=== PATIENT | female | born 1985 | race Caucasian/White ===

== ENCOUNTER 2020-02-22 16:07 | Outpatient (CLI) | payer OTHER, SELFPAY ==
[2020-02-22 16:36] LABS: Collection Time Urine 24 HOURS
[2020-02-22 16:49] LABS: Hematocrit 38.6 % (37.0-47.0); Hemoglobin 13.3 g/dL (12.0-15.0); Mean Corpuscular HGB Conc 34.5 g/dl (32-36); Mean Corpuscular Hemoglobin 31.6 pg (26-34); Mean Corpuscular Volume 91.7 fl (80-100); Mean Platelet Volume 11.3 fl (7.4-10.4); Platelet Count Result 244 k/mm3 (150-375); Red Blood Count 4.21 M/mm3 (4.2-5.4); Red Cell Distribution Width 13.3 % (11.5-14.5); White Blood Count 13.8 K/mm3 (4.5-10.0)
[2020-02-22 17:01] LABS: Alanine Aminotransferase 13 U/L (4-35); Albumin Level 3.5 g/dL (3.5-5.1); Alkaline Phosphatase 168 U/L (38-126); Anion Gap 9.6 mmol/L (7-16); Aspartate Amino Transferase 24 U/L (14-36); Bilirubin,Total 0.3 mg/dL (0.2-1.3); Blood Urea Nitrogen 6 mg/dL (7-17); Calcium 8.2 mg/dL (8.4-10.2); Carbon Dioxide 20 mmol/L (22-30); Chloride 107 mmol/L (98-107); Estimated Glomerular Filt Rate > 60; Glucose 101 mg/dL (65-105); Lactate Dehydrogenase 410 U/L (313-618); Potassium 3.6 mmol/L (3.4-5.0); Sodium 133 mmol/L (137-145)
[2020-02-22 17:14] LABS: Total Volume 24 Hour Urine 350 ml
[2020-02-22 17:50] LABS: Creatinine Urine 211.3 mg/dL
[2020-02-22 19:20] LABS: Creatinine Clearance Urine 88.7 ml/min (75-125); Patient Weight 325 Lbs
[2020-02-23 06:50] LABS: Total Protein Urine 24 Hr 28 MG/DAY (28-141); Total Protein Urine Random 8 mg/dL
== END 2020-02-22 16:08 | disposition home or self-care (01) ==
LOC: ANHLAB 16:09
PROVIDERS: PCP Obstetrics & Gynecology; Visit Provider Obstetrics & Gynecology
DX: O13.9 Gestational [pregnancy-induced] hypertension without significant proteinuria, unspecified trimester (principal); Z3A.00 Weeks of gestation of pregnancy not specified
CPT/HCPCS: 36415; 80053; 81002; 81050; 82575; 83615; 84156; 84550; 85027

== ENCOUNTER 2020-02-29 18:10 | Outpatient (CLI) | payer OTHER, SELFPAY ==
[2020-02-29] VITALS (12 sets, daily range): BP systolic 139–161; BP diastolic 81–98; PULSE 91–101
[2020-02-29 19:04] LABS: Basophils Percent Auto 0.3 % (0.2-1.2); Eosinophils Absolute Auto 0.1 K/mm3 (0-0.3); Eosinophils Percent Auto 0.5 % (0-4.4); Hematocrit 37.5 % (37.0-47.0); Hemoglobin 12.9 g/dL (12.0-15.0); Immature Granulocyte Percent A 0.7 % (0-0.5); Immature Platelet Fraction Pct 7.4 % (0.9-11.2); Lymphocytes Absolute Auto 2.03 K/mm3 (0.9-3.2); Lymphocytes Percent Auto 14.2 % (18.3-44.2); Mean Corpuscular HGB Conc 34.4 g/dl (32-36); Mean Corpuscular Hemoglobin 31.8 pg (26-34); Mean Corpuscular Volume 92.4 fl (80-100); Mean Platelet Volume 11.4 fl (7.4-10.4); Monocytes Absolute Auto 0.6 K/mm3 (0.1-0.6); Monocytes Percent Auto 4.3 % (2.6-8.5); Neutrophils Absolute Auto 11.5 K/mm3 (1.3-6.7); Platelet Count Result 200 k/mm3 (150-375); Red Blood Count 4.06 M/mm3 (4.2-5.4); Red Cell Distribution Width 13.3 % (11.5-14.5); White Blood Count 14.3 K/mm3 (4.5-10.0)
[2020-02-29 19:09] LABS: Add Urine Microscopic? YES; Appearance Urine Clear (Clear); Bacteria Urine Trace /hpf; Bilirubin Urine 1+ (Negative); Blood Urine Negative (Negative); Color Urine Yellow (Yellow); Glucose Urine UA Negative (Negative); Ketones Urine Negative (Negative); Leukocyte Esterase Ur Trace LEU/UL (NEGATIVE); Mucus Urine Few /lpf; Nitrate Urine Negative (Negative); Protein Urine 1+ mg/dL (Negative); Specific Grav Ur 1.028 (1.001-1.035); Squamous Epithelial Cell Urine Many /hpf (Few); WBC Urine 0-3 /hpf (0-3)
[2020-02-29 19:16] LABS: Alanine Aminotransferase 12 U/L (4-35); Albumin Level 3.2 g/dL (3.5-5.1); Alkaline Phosphatase 152 U/L (38-126); Anion Gap 9.5 mmol/L (7-16); Aspartate Amino Transferase 24 U/L (14-36); Bilirubin,Total < 0.1 mg/dL (0.2-1.3); Blood Urea Nitrogen 8 mg/dL (7-17); Calcium 8.3 mg/dL (8.4-10.2); Carbon Dioxide 21 mmol/L (22-30); Chloride 107 mmol/L (98-107); Estimated Glomerular Filt Rate > 60; Glucose 126 mg/dL (65-105); Potassium 3.5 mmol/L (3.4-5.0); Sodium 134 mmol/L (137-145); Uric Acid 3.8 mg/dL (2.5-7.5)
[2020-02-29] MEDS: LABETALOL HCL 100 MG TABLET PO (19:38)
== END 2020-02-29 21:30 | disposition home or self-care (01) ==
LOC: ANHOBOP 18:18 → ANHLDR 18:18
PROVIDERS: Obstetrics & Gynecology Gynecology; Visit Provider Obstetrics & Gynecology
DX: O13.9 Gestational [pregnancy-induced] hypertension without significant proteinuria, unspecified trimester (principal); Z3A.00 Weeks of gestation of pregnancy not specified
CPT/HCPCS: 36415; 59025; 80053; 81001; 84550; 85025; 85055; 87086; 87088; 99199; A9270

== ENCOUNTER 2020-03-04 04:50 | Inpatient (IN) | payer OTHER, SELFPAY ==
[2020-02-17 13:23] VITALS: BMI 49.6
[2020-03-04] VITALS (172 sets, daily range): BP systolic 95–172; BP diastolic 49–99; PULSE 74–124; TEMP 36.4–37; O2SAT 96–100
--- NOTE | 2020-03-04 06:32 | LDADM ---
This patient, Kathy Estrada, was admitted to Labor/Delivery/Recovery 109 on 03/04/20 at 04:50. Plans for labor, pain management and were discussed with patient. Patient/family oriented to hospital policies and general routines including ID bracelet, bed and alarms, visiting hours, pain management, procedures, bathroom and other care routines, personal items, smoking policy, room service/diet and guest tray routines, security routines, and visiting hours. Patient/Family are encouraged to report perceived risks to care and to ask questions if they do not understand what they are told or what they should do. See OBIX for further documentation.
--- NOTE | 2020-03-04 07:02 | WPDANESEPP ---
Anes - Eval Pre Procedure Procedure: Labor epidural Date/Time: 03/04/20 07:02 Surgeon: bigg michaud m.d. Preop Diagnosis: pain during labor Pre Op Diagnosis: IOL Patient Data Age: 34 Gender: F Height: 1.73 m Weight: 148 kg Last Vital Signs Pulse 106 H 03/04/20 05:26 BP 140/91 H 03/04/20 05:26 Allergies Allergy/AdvReac Type Severity Reaction Status Date / Time No Known Allergies Allergy Verified 07/31/19 17:20 Home Medications Medication Instructions Recorded Confirmed Type [id number] acid 1 tablet PO DAILY 07/31/19 03/04/20 History [ Multi] insulin NPH isoph U-100 human 18 unit SUBCUT HS 02/29/20 03/04/20 History [Humulin N NPH U-100 Insulin] insulin lispro 4 unit QACBREAK 02/29/20 03/04/20 History labetalol 200 mg PO BID 02/29/20 03/04/20 History Patient hx anesthesia problems: none Family hx anesthesia problems: none PMFSH Past Medical History Medical History (Updated 03/04/20 @ 07:03 by Oumou Cedeño CRNA) IUP (intrauterine ), incidental Morbid obesity with BMI of 45.0-49.9, adult Family History Family History (Updated 02/17/20 @ 13:29 by Kimberly Poole RN) Mother Hypertension Father Diabetes mellitus Liver abscess and sequelae of chronic liver disease Social History Social History (Updated 07/31/19 @ 18:03 by Shabana Milian CNP) Years smoked: 17 Smoking status: Current every day smoker Substance use: never Gender identity (if verbalized by the patient): Female Sexual Orientation (if Verbalized by the Patient): Straight or Heterosexual Spiritual care concerns: No Exam Day of Procedure 03/04/20 07:02
[2020-03-04] MEDS: LACTATED RINGERS 1,000 ML 125 ML IV CONT ×2 (08:09→14:23)
[2020-03-04] MEDS: OXYTOCIN 30 UNITS/NS 500 ML 30 UNITS/500 ML BAG IV CONT (08:10)
[2020-03-04 08:19] LABS: Basophils Percent Auto 0.3 % (0.2-1.2); Eosinophils Absolute Auto 0.1 K/mm3 (0-0.3); Eosinophils Percent Auto 0.7 % (0-4.4); Hematocrit 34.6 % (37.0-47.0); Hemoglobin 11.9 g/dL (12.0-15.0); Immature Granulocyte Absolute 0.18 K/mm3 (0.00-0.031); Immature Granulocyte Percent A 1.2 % (0-0.5); Lymphocytes Absolute Auto 2.25 K/mm3 (0.9-3.2); Lymphocytes Percent Auto 14.9 % (18.3-44.2); Mean Corpuscular HGB Conc 34.4 g/dl (32-36); Mean Corpuscular Hemoglobin 31.9 pg (26-34); Mean Corpuscular Volume 92.8 fl (80-100); Mean Platelet Volume 11.1 fl (7.4-10.4); Monocytes Absolute Auto 1.1 K/mm3 (0.1-0.6); Monocytes Percent Auto 7.4 % (2.6-8.5); Neutrophils Absolute Auto 11.4 K/mm3 (1.3-6.7); Neutrophils Percent Auto 75.5 % (45.5-73.1); Platelet Count Result 229 k/mm3 (150-375); Red Blood Count 3.73 M/mm3 (4.2-5.4); Red Cell Distribution Width 13.4 % (11.5-14.5); White Blood Count 15.1 K/mm3 (4.5-10.0)
[2020-03-04 08:31] LABS: Alanine Aminotransferase 14 U/L (4-35); Albumin Level 3.2 g/dL (3.5-5.1); Alkaline Phosphatase 152 U/L (38-126); Anion Gap 8.7 mmol/L (7-16); Aspartate Amino Transferase 28 U/L (14-36); Bilirubin,Total 0.3 mg/dL (0.2-1.3); Blood Urea Nitrogen 11 mg/dL (7-17); Calcium 8.5 mg/dL (8.4-10.2); Carbon Dioxide 20 mmol/L (22-30); Chloride 107 mmol/L (98-107); Estimated CRCL calculation 171 ml/min; Estimated Glomerular Filt Rate > 60; Glucose 90 mg/dL (65-105); Potassium 3.7 mmol/L (3.4-5.0); Sodium 132 mmol/L (137-145)
[2020-03-04 09:12] LABS: HIV 1/2 Ab P24 Ag Result Negative (Negative)
--- NOTE | 2020-03-04 11:44 | WPDOBADMIT ---
Obstetrics - Admit Note Admission Note: record reviewed. No pertinent additions to the history and/or any subsequent changes in the physical findings that are not consistent with the expected course of the were found. Additions to the history and/or subsequent changes in the physical findings follow. GDMA2 and PIH. MIL in progress. Cervix 1-2/50/-3 AROM with clear fluid. FHTs reactive. Dr. Galdamez informed..
[2020-03-04 11:52] LABS: Glucose Point of Care 80 (65-105)
[2020-03-04 15:46] LABS: Glucose Point of Care 66 (65-105)
[2020-03-04 19:54] LABS: Glucose Point of Care 65 (65-105)
[2020-03-04] MEDS: OXYTOCIN 30 UNITS/NS 500 ML 30 UNITS/500 ML BAG 125 UNITS IV CONT (21:59)
--- NOTE | 2020-03-04 22:00 | PM.OBPRVD ---
OB - Delivery Note Procedure Delivery date: 03/04/20 Procedure: events: Labor Induction Induction method: AROM and per pitocin protocol Delivery monitor: external FHT, external uterine, internal FHT and internal uterine Route of delivery: Laceration description: None Specimen: Yes Estimated blood loss (mL): 120 Anesthesia type: Epidural Disposition: observation Baby Date of : 03/04/20 Time of : 21:27 Weeks of gestation at delivery: 39 Infant gender: Male Weight (pounds): 7 Weight (ounces): 6 presentation: vertex Placenta delivery description: Spontaneous cord vessel description: 3 Vessels score one minute: 9 score five minutes: 9
[2020-03-05 00:05] VITALS: BP 159/89; PULSE 101; RESP 16; TEMP 36.6; O2SAT 99
--- NOTE | 2020-03-05 00:05 | OBPPTRN ---
Patient transferred to post room #288 via wheelchair. Support person present. Oriented to unit, room, information board, rooming in, admission packet and security measures. Patient verbalizes understanding. with patient.
[2020-03-05] MEDS: IBUPROFEN 600 MG TABLET PO ×3 (00:25→17:07)
[2020-03-05 06:04] LABS: Hematocrit 34.8 % (37.0-47.0); Hemoglobin 11.7 g/dL (12.0-15.0)
--- NOTE | 2020-03-05 07:44 | WPDANLDPN2 ---
Anes-Prog Note L&D Date/Time: 03/05/20 07:44 Comfortable throughout: labor Neuraxial method: epidural Neuro status: Neuro function grossly intact. Cardiovascular status: normal Respiratory status: normal Airway patency: baseline Mental status: baseline Post-Op hydration status: normal Vital Signs: Last Vital Signs Temp 36.6 C 03/05/20 00:05 Pulse 101 H 03/05/20 00:05 Resp 16 03/05/20 00:05 BP 159/89 H 03/05/20 00:05 Pulse Ox 99 03/05/20 00:05 I/O: Intake & Output 03/04/20 03/04/20 03/05/20 15:59 23:59 07:59 Intake Total 1000 500 Output Total 40 Balance 1000 500 -40 Post-procedural complaints: none Patient feedback: Patient satisfied with anesthetic care.
[2020-03-05 08:00] VITALS: BP 156/97; PULSE 93; RESP 16; RESP 18; TEMP 36.6
[2020-03-05] MEDS: DOCUSATE SODIUM 100 MG CAPSULE PO ×2 (08:29→17:06)
[2020-03-05 08:30] VITALS: PULSE 100
[2020-03-05] MEDS: LABETALOL HCL 100 MG TABLET 200 MG PO ×2 (08:30→17:06)
[2020-03-05 11:04] LABS: Rapid Plasma Reagin Non-Reactive (NonReactive)
[2020-03-05 17:06] VITALS: PULSE 100
[2020-03-05 20:00] VITALS: BP 149/86; PULSE 93; RESP 18; TEMP 36.2; O2SAT 99
[2020-03-06 07:50] VITALS: BP 157/105; PULSE 88; RESP 18; TEMP 36.6; O2SAT 100
[2020-03-06 08:45] VITALS: PULSE 80
[2020-03-06] MEDS: LABETALOL HCL 100 MG TABLET 200 MG PO (08:45)
[2020-03-06] MEDS: IBUPROFEN 600 MG TABLET PO (08:46)
--- NOTE | 2020-03-06 09:29 | PM.GYNPNOP ---
ASP NET DEVELOPER - A/P Assessment and plan (1) (normal spontaneous vaginal delivery): Code(s): O80 - Encounter for full-term uncomplicated delivery Status: Acute (2) PIH ( induced hypertension): Code(s): O13.9 - Gestational [-induced] hypertension without significant proteinuria, unspecified trimester Status: Acute Assessment and Plan: recheck PIH labs continue labetalol consider increase TID. Time Spent With Patient Time: Total time spent is greater than 50% in coordination of care (as documented) at patient's floor/unit and/or counseling patient: Time with patient: less than 15 minutes ASP NET DEVELOPER- PN:Subj Post-Op Subjective Date/time seen: 03/06/20 09:29 S: doing well no complaints desires home today Exam : Other: uterus palpable fundus firm ASP NET DEVELOPER - PN: Obj Data Vital Signs Vital Signs: Vital Signs - 24 hr 03/05/20 17:06 03/05/20 20:00 03/06/20 08:45 Temperature 36.2 C L Pulse Rate 100 93 80 Respiratory Rate 18 Blood Pressure 149/86 H Pulse Oximetry 99 Intake/Output Intake/Output: Intake & Output 03/03/20 03/04/20 03/05/20 03/06/20 23:59 23:59 23:59 23:59 Intake Total 1500 Output Total 40 Balance 1500 -40 Meds/Results Medications: Active Medications Generic Name Dose Route Start Last Admin Trade Name Freq PRN Reason Stop Dose Admin Acetaminophen 650 mg 03/04/20 22:04 Tylenol Tablet PO Q6H PRN Mild Pain (1-3) or Headache Benzocaine 1 spray 03/04/20 22:04 Dermoplast Aerosol TOPICAL PRN PRN Perineal Discomfort Dibucaine 1 applic 03/04/20 22:04 Nupercainal Ointment TOPICAL PRN PRN Hemorrhoids Docusate Sodium 100 mg 03/04/20 22:04 03/05/20 17:06 Colace Capsule PO 100 mg BID PRN Administration Constipation Emollient Ointment 1 applic 03/04/20 22:04 Lansinoh Cream TOPICAL PRN PRN Sore Nipples Ibuprofen 600 mg 03/04/20 22:04 03/06/20 08:46 Motrin PO 600 mg Q6H PRN Administration Cramping Labetalol HCl 200 mg 03/05/20 09:00 03/06/20 08:45 Trandate PO 200 mg BID CHANEL Administration Ondansetron HCl 4 mg 03/04/20 22:04 Zofran Inj IV PUSH Q6H PRN Nausea Polysaccharide Iron Complex 150 mg 03/05/20 08:00 03/05/20 08:33 Niferex-150 PO Not Given BIDWM CHANEL Vit/Calcium/Iron/Folic Ac 1 tab 03/05/20 09:00 Mr 90 PO DAILY [facility] Simethicone 80 mg 03/04/20 22:04 Mylicon PO Q2H PRN Gas Witch Stacia 1 pad 03/04/20 22:04 Tucks Pads TOPICAL PRN PRN Perineal Discomfort Zolpidem Tartrate 5 mg 03/04/20 22:04 Ambien PO HS PRN Insomnia Labs CBC & Chem 7: 03/05/20 05:25 03/04/20 07:35 Labs: Laboratory Results - last 24 hr 03/04/20 07:35 RPR Non-reactive
--- NOTE | 2020-03-06 09:39 | PM.OBPNVD ---
OB - PN: Subj Subjective Date/time seen: 03/05/20 0735 S: doing well no complaints OB - PN: Obj Data Labs CBC & Chem 7: 03/05/20 05:25 03/04/20 07:35 Labs: Laboratory Results - last 24 hr 03/04/20 07:35 RPR Non-reactive OB - PN A/P Assessment and Plan (1) PIH ( induced hypertension): Code(s): O13.9 - Gestational [-induced] hypertension without significant proteinuria, unspecified trimester Status: Acute Assessment and Plan: stable bps with labetalol 200 mg po bid. (2) (normal spontaneous vaginal delivery): Code(s): O80 - Encounter for full-term uncomplicated delivery Status: Acute Time Spent With Patient Time: Total time spent is greater than 50% in coordination of care (as documented) at patient's floor/unit and/or counseling patient: Exam GI: Other: abdomen soft ff
[2020-03-06 10:37] LABS: Basophils Percent Auto 0.3 % (0.2-1.2); Eosinophils Absolute Auto 0.1 K/mm3 (0-0.3); Eosinophils Percent Auto 0.9 % (0-4.4); Hematocrit 31.9 % (37.0-47.0); Hemoglobin 10.7 g/dL (12.0-15.0); Immature Granulocyte Absolute 0.17 K/mm3 (0.00-0.031); Immature Granulocyte Percent A 1.4 % (0-0.5); Lymphocytes Absolute Auto 2.06 K/mm3 (0.9-3.2); Lymphocytes Percent Auto 16.7 % (18.3-44.2); Mean Corpuscular HGB Conc 33.5 g/dl (32-36); Mean Corpuscular Hemoglobin 31.9 pg (26-34); Mean Corpuscular Volume 95.2 fl (80-100); Monocytes Absolute Auto 0.8 K/mm3 (0.1-0.6); Monocytes Percent Auto 6.1 % (2.6-8.5); Neutrophils Absolute Auto 9.2 K/mm3 (1.3-6.7); Neutrophils Percent Auto 74.6 % (45.5-73.1); Platelet Count Result 185 k/mm3 (150-375); Red Blood Count 3.35 M/mm3 (4.2-5.4); Red Cell Distribution Width 13.9 % (11.5-14.5); White Blood Count 12.3 K/mm3 (4.5-10.0)
[2020-03-06 10:53] LABS: Alanine Aminotransferase 17 U/L (4-35); Albumin Level 3.1 g/dL (3.5-5.1); Alkaline Phosphatase 120 U/L (38-126); Anion Gap 7.2 mmol/L (7-16); Aspartate Amino Transferase 32 U/L (14-36); Bilirubin,Total < 0.1 mg/dL (0.2-1.3); Blood Urea Nitrogen 12 mg/dL (7-17); Calcium 8.3 mg/dL (8.4-10.2); Carbon Dioxide 23 mmol/L (22-30); Chloride 108 mmol/L (98-107); Estimated CRCL calculation 202 ml/min; Estimated Glomerular Filt Rate > 60; Glucose 96 mg/dL (65-105); Potassium 4.2 mmol/L (3.4-5.0); Sodium 134 mmol/L (137-145); Uric Acid 3.7 mg/dL (2.5-7.5)
--- NOTE | 2020-03-07 14:08 | PM.DS ---
DS: Admitting Diagnosis Admitting Diagnosis Admitting Diagnosis: Encounter for full-term uncomplicated delivery DS: Discharge Diagnosis Discharge Diagnosis (1) PIH ( induced hypertension): Code(s): O13.9 - Gestational [-induced] hypertension without significant proteinuria, unspecified trimester Status: Acute (2) (normal spontaneous vaginal delivery): Code(s): O80 - Encounter for full-term uncomplicated delivery Status: Acute (3) Morbid obesity with BMI of 45.0-49.9, adult: Code(s): E66.01 - Morbid (severe) obesity due to excess calories; Z68.42 - Body mass index (BMI) 45.0-49.9, adult Status: Acute (4) GDM, class A2: Code(s): O24.419 - Gestational diabetes mellitus in , unspecified control Status: Acute DS: Summary Time Spent with Patient Time attestation: Total time spent providing and/or coordinating discharge services: DS: Data Data Completed and Pending Pending studies at discharge: Pending at discharge 03/04/20 21:45 Surgical [PTH] Routine Discharge Plan Discharge Attending physician on discharge: Nathanael Galdamez Discharging Clinician: Nathanael Galdamez Patient Disposition: Home, Self-Care Activity: may shower Diet: regular Discharge Instructions: Education: Mom and Baby Guide Given to: Mother Follow-Up: Call your delivering provider's office for an appointment to be seen. Mom and baby should come to the [facility] for the follow-up appointment. Appointment Date/Time: March 08, 2020 at 11:00 am What to expect at your follow-up visit: Physical Assessment Call [phone] if you are unable to keep your appointment time. BREAST CARE: * Wear a snug supportive bra. * For engorgement discomfort: Bottle Feeding: * May apply ice packs EPISIOTOMY/PERINEAL CARE: * Until bleeding stops, use your wendie bottle after urinating * Change your pad frequently throughout the day * You may take sitz baths several times a day (fill your bathtub with warm water and soak for 20 minutes.) Do NOT bathe in the water * No tub baths until seen by your physician - You may shower ACTIVITY: * Rest as much as possible. * Do not exercise or lift anything heavier than your baby (such as laundry or other children.) * Avoid stairs or driving as much as possible. * Do not put anything into the vagina. No douching, tampons, or sexual activity until seen by physician. NOTIFY PHYSICIAN IF YOU HAVE ANY QUESTIONS OR IF ANY OF THE FOLLOWING SYMPTOMS OCCUR: * If your perineum becomes red, swollen, or more painful than what you have experienced in the hospital. * If your vaginal bleeding becomes foul smelling. * If your vaginal bleeding becomes more heavy than a period or if your bleeding changes from pink to bright red. However, you may pass an occasional walnut-sized clot once or twice for the first week . * If you experience a sharp, shooting pain in you calves. * If you discover a hard, reddened area on your breast or if you experience flu-like symptoms. DIET: * Eat regular, well-balanced meals. * Drink plenty of fluids daily. Stand Alone Forms: General Discharge Information Follow-up/Referrals: Nathanael Galdamez MD [Physician] - Discharge Medications: Continued Multi 27-800 mg-mcg Tablet 1 tablet PO DAILY RF: 0 labetalol 100 mg tablet 200 mg PO BID RF: 0 Discontinued insulin lispro 100 unit/mL solution 4 unit QACBREAK RF: 0 Humulin N NPH U-100 Insulin 100 unit/mL suspension 18 unit SUBCUT HS RF: 0 Date of admission: 03/04/20 04:50 Primary Care Provider: PHYSICIAN,SPINE SURGEON Admitting Provider: Nathanael Galdamez Discharge Date/Time: 03/06/20 14:40 Attending physician on admission: Nathanael Galdamez
[2020-03-08 11:36] VITALS: BP 157/90; PULSE 82; RESP 22; O2SAT 100
== END 2020-03-06 14:40 | disposition home or self-care (01) | DRG 560 ==
LOC: ANHLDR 23:30 → ANHOB2 03-05 00:35
PROVIDERS: Admitting Provider Obstetrics & Gynecology; Visit Provider Obstetrics & Gynecology
DX: O24.429 Gestational diabetes mellitus in childbirth, unspecified control (principal); Z37.0 Single live birth; Z3A.39 39 weeks gestation of pregnancy; O13.4 Gestational [pregnancy-induced] hypertension without significant proteinuria, complicating childbirth; O36.8330 Maternal care for abnormalities of the fetal heart rate or rhythm, third trimester, not applicable or unspecified; O99.214 Obesity complicating childbirth; E66.01 Morbid (severe) obesity due to excess calories
CPT/HCPCS: 36415; 80053; 84550; 85014; 85018; 85025; 86592; 86703; 86850; 86900; 86901; 88307; A9270; G0432; J2590; J2795; J3010; J7120

== ENCOUNTER 2021-02-11 18:06 | Emergency (ER) | payer OTHER, SELFPAY ==
--- NOTE | 2021-02-11 18:57 | PC.NURSE ---
Patient called to triage. No answer at this time.
== END 2021-02-12 04:29 | disposition left against medical advice (07) ==
DX: Z53.21 Procedure and treatment not carried out due to patient leaving prior to being seen by health care provider (principal)
CPT/HCPCS: 99199

== ENCOUNTER 2021-02-11 18:41 | Emergency (ER) | payer OTHER, SELFPAY ==
[2021-02-11 18:52] VITALS: BP 151/101; PULSE 108; RESP 20; TEMP 37.3; O2SAT 100
--- NOTE | 2021-02-11 18:59 | ED.DENTAL ---
HPI - Dental/Oral General Chief complaint: Dental/Oral Stated complaint: facial swelling Time Seen by Provider: 02/11/21 18:50 Source: patient and RN notes reviewed Mode of arrival: ambulatory Limitations: no limitations History of Present Illness HPI Narrative: 35-year-old female presents to the [facility] with complaints of left-sided facial swelling. Very poor dentition noted. Has a history of dental decay and infections. Related Data Home Medications Medication Instructions Recorded Confirmed medroxyprogesterone See Rx Instructions .ROUTE .COMPLEX 02/11/21 02/11/21 Allergies Allergy/AdvReac Type Severity Reaction Status Date / Time No Known Allergies Allergy Verified 02/11/21 18:45 Review of Systems Review of Systems: All systems reviewed & are unremarkable except as noted in HPI and below Constitutional: Constitutional: Reports no additional constitutional complaints, Denies chills and Denies fever(s) Eyes: Eyes: Reports no additional eye complaints ENT: Comments: Left posterior jaw swelling Cardiovascular: Cardiovascular: Reports no additional cardiovascular complaints Respiratory: Respiratory: Reports no additional respiratory complaints Gastrointestinal: Gastrointestinal: Reports no additional gastrointestinal complaints Musculoskeletal: Musculoskeletal: Reports no additional musculoskeletal complaints Integumentary/Breasts: Skin/Breast: Reports system reviewed and no additional complaints, except as docu Neurologic: Reports system reviewed and no additional complaints, except as documented Psychiatric: Psychiatric: Reports no additional psychiatric complaints Allergic/Immunologic: Allergic/Immunologic: Reports no additional allergic/immunologic complaints [facility] Past Medical History Medical History (Updated 02/11/21 @ 19:01 by Katya Peres) GDM, class A2 IUP (intrauterine ), incidental Morbid obesity with BMI of 45.0-49.9, adult (normal spontaneous vaginal delivery) PIH ( induced hypertension) Family History Family History Mother Hypertension Father Diabetes mellitus Liver abscess and sequelae of chronic liver disease Social History Social History Years smoked: 17 Smoking status: Current every day smoker Substance use: never Gender identity (if verbalized by the patient): Female Spiritual care concerns: No Comments At the time of my signature, I reviewed and agree with the nursing past medical, surgical, social, and family history. There is no relevant family history pertinent to the patient complaint. Exam Const: General: healthy appearing, no acute distress and alert Nutritional Appearance: well nourished and obese Orientation/consciousness: patient oriented x3 Limitations: no limitations HENMT: Head: normal to inspection Ears: hearing grossly normal bilaterally, external ears normal, TM's normal bilaterally and EAC's normal General nose exam: Normal external nose present Face and sinus: sinuses nontender Mouth: Yes oropharynx normal and Yes moist mucous membranes Teeth and gingiva: abnormal tooth and associated gingiva (Left lower posterior wisdom tooth, decayed into the gum. ), caries, gingiva abnormal diffusely erythematous and poor dentition Teeth image: 1. Decayed noted with swelling of the surrounding tissue Eyes: Pupils: Equal, round and reactive pupils present Neck: Neck: lymphadenopathy left submandibular soft and tender Neck images: 1. Swelling and tenderness noted on palpation, no redness. No fluctuant area. Chest: Chest palpation & inspection: normal inspection of the chest Resp: Effort & Inspection: normal respiratory effort and no use of accessory muscles Auscultation: clear to auscultation bilaterally, no crackles, no rales, no rhonchi and no wheezes Cardio: Rate: regular rate Rhythm: regular rhythm
== END 2021-02-11 19:07 | disposition home or self-care (01) ==
PROVIDERS: Emergency Provider Nurse Practitioner
DX: K04.7 Periapical abscess without sinus (principal); F17.200 Nicotine dependence, unspecified, uncomplicated; E66.01 Morbid (severe) obesity due to excess calories; Z68.42 Body mass index [BMI] 45.0-49.9, adult
CPT/HCPCS: 99213; G0463

== ENCOUNTER 2023-01-07 21:09 | Emergency (ER) | payer OTHER, SELFPAY ==
[2023-01-07] VITALS (13 sets, daily range): BP systolic 147–178; BP diastolic 105–131; PULSE 88–122; RESP 14–23; TEMP 36.9; O2SAT 98–100
--- NOTE | ~2023-01-07 | XR_ITS ---
EXAMINATION: XR chest 2V DATE: 01/07/2023 21:58 INDICATION: Centralized chest pain, tobacco use TECHNIQUE: PA and lateral views of the chest are obtained. COMPARISON: 07/26/2018 FINDINGS: The lungs are free of acute opacities. No pleural effusion or pneumothorax. The cardiomedia stinal silhouette is normal. There is mild thoracic spondylosis. IMPRESSION: 1. No acute cardiopulmonary abnormality. Reviewed, dictated and finalized at location F.
--- NOTE | ~2023-01-07 | CT_ITS ---
Clinical Indication: Chest pain, dyspnea CT Scan of the Chest with Contrast: Technique: Contiguous sections were acquired throughout the chest after intravenous administration of 100 cc of Omnipaque 350. Dose reduction technique was used on this scan by utilizing automated expos ure control and iterative reconstruction technique. The dose-length product (DLP) was 930.05 mGy-cm. Findings: There is no evidence of any significant mediastinal, hilar or axillary lymphadenopathy. There is no f illing defect in the pulmonary arterial tree to suggest pulmonary embolus. There is no evidence of ao rtic dissection or aneurysm. There is no evidence of pleural or pericardial effusion. The lungs are clear. No pulmonary nodules or infiltrates are noted. Images through the upper abdomen reveal no abnormalities. Impression: No evidence of pulmonary embolus, aortic dissection, or aortic aneurysm. Clear lungs. Reviewed, dictated and finalized at [facility]. Impression: No evidence of pulmonary embolus, aortic dissection, or aortic aneurysm. Clear lungs.
--- NOTE | 2023-01-07 21:14 | ECG_ITS ---
Measurements Intervals [place] Rate: 113 P: 47 WV: 169 QRS: 52 QRSD: 95 T: 15 QT: 313 QTc: 429 Interpretive Statements SINUS TACHYCARDIA RATE DEPENDENT RIGHT BUNDLE BRANCH BLOCK ABNORMAL RHYTHM ECG NO PREVIOUS ECG AVAILABLE FOR COMPARISON Electronically Signed On 01-08-2023 12:40:32 CDT by Perry Aviles M.D.
[2023-01-07] MEDS: ASPIRIN 81 MG CHEWABLE TABLET 324 MG PO (21:30)
[2023-01-07 21:31] LABS: Basophils Absolute Auto 0.1 K/mm3 (0.0-0.1); Basophils Percent Auto 0.5 % (0.2-1.2); Eosinophils Absolute Auto 0.1 K/mm3 (0-0.3); Eosinophils Percent Auto 0.9 % (0-4.4); Hematocrit 44.1 % (37.0-47.0); Hemoglobin 14.7 g/dL (12.0-15.0); Immature Granulocyte Absolute 0.03 K/mm3 (0.00-0.031); Immature Granulocyte Percent A 0.3 % (0-0.5); Lymphocytes Absolute Auto 3.26 K/mm3 (0.9-3.2); Lymphocytes Percent Auto 27.9 % (18.3-44.2); Mean Corpuscular HGB Conc 33.3 g/dl (32-36); Mean Corpuscular Hemoglobin 30.1 pg (26-34); Mean Corpuscular Volume 90.4 fl (80-100); Mean Platelet Volume 10.1 fl (7.4-10.4); Monocytes Absolute Auto 0.6 K/mm3 (0.1-0.6); Monocytes Percent Auto 5.2 % (2.6-8.5); Neutrophils Absolute Auto 7.6 K/mm3 (1.3-6.7); Neutrophils Percent Auto 65.2 % (45.5-73.1); Platelet Count Result 272 k/mm3 (150-375); Red Blood Count 4.88 M/mm3 (4.2-5.4); Red Cell Distribution Width 13.1 % (11.5-14.5); White Blood Count 11.7 K/mm3 (4.5-10.0)
[2023-01-07 21:42] LABS: Prothrombin Time 13.7 Seconds (11.1-14.7)
[2023-01-07 21:43] LABS: Alanine Aminotransferase 23 U/L (6-35); Albumin Level 4.2 g/dL (3.5-5.1); Alkaline Phosphatase 77 U/L (38-126); Anion Gap 8 mmol/L (8-16); Aspartate Amino Transferase 31 U/L (14-36); Bilirubin,Total 0.4 mg/dL (0.2-1.3); Blood Urea Nitrogen 7 mg/dL (7-17); Calcium 8.3 mg/dL (8.4-10.2); Carbon Dioxide 23 mmol/L (22-30); Chloride 106 mmol/L (98-107); Estimated CRCL calculation 139 ml/min; Estimated Glomerular Filt Rate > 60; Glucose 120 mg/dL (65-110); Lipase 127 U/L (23-300); Partial Thromboplastin Time 24.9 SECONDS (22.3-36.8); Potassium 3.3 mmol/L (3.4-5.0); Sodium 137 mmol/L (137-145)
[2023-01-07 21:54] LABS: Troponin I < 0.012 ng/mL (0.000-0.034)
--- NOTE | 2023-01-07 22:23 | ED.CHESTPAIN ---
HPI - Chest Pain General Chief Complaint: Chest Pain <SHEBA Sanchez Last Filed: 01/08/23 03:04> Stated Complaint: chest pain <SHEBA Sanchez Last Filed: 01/08/23 03:04> Time Seen by Provider: 01/07/23 21:45 <SHEBA Sanchez Last Filed: 01/08/23 03:04> Source: patient <SHEBA Sanchez Last Filed: 01/08/23 03:04> Mode of arrival: ambulatory <SHEBA Sanchez Last Filed: 01/08/23 03:04> Limitations: no limitations <SHEBA Sanchez Last Filed: 01/08/23 03:04> History of Present Illness HPI narrative: This is a 37-year-old female presents to the ED with chief complaints of chest pain shortness of breath ongoing for the past week and a half intermittently. Patient states that tonight it was a little worse so she came to the ER for further evaluation. Patient reports initially she had pain in the center of the chest that radiated to the left side. Reports ciaran mitten diaphoresis when the pain came on tonight is since resolved. Denies vomiting. Denies any right-sided pain. Reports it is hard to take a deep breath. Also reports associated tingling to the bilateral upper extremities. <SHEBA Sanchez Last Filed: 01/08/23 03:04> Related Data Home Medications: Home Medications Medication Instructions Recorded Confirmed medroxyprogesterone 150 mg/mL See Rx Instructions .Route .COMPLEX 02/11/21 02/11/21 intramuscular suspension <SHEBA Sanchez Last Filed: 01/08/23 03:04> Allergies/Adverse Reactions: Allergies Allergy/AdvReac Type Severity Reaction Status Date / Time No Known Allergies Allergy Verified 02/11/21 18:45 <SHEBA Sanchez Last Filed: 01/08/23 03:04> Review of Systems Review of Systems: CONSTITUTIONAL: Denies fever, chills, or sweats. EYES: Denies visual changes, redness, or discharge. ENT: Denies rhinorrhea, congestion, sore throat, or otalgia. CARDIOVASCULAR: See HPI RESPIRATORY: See HPI GASTROINTESTINAL: Denies abdominal pain, nausea, vomiting, or diarrhea. GENITOURINARY: Denies dysuria or hematuria. SKIN: Denies rash or itching. MUSCULOSKELETAL: Denies back pain, joint pain, or myalgia. NEUROLOGIC: Denies headache, numbness, dizziness, or weakness. PSYCHIATRIC: See HPI <Juve Jarvis PA-C - Last Filed: 01/08/23 03:04> PMFSH Past Medical History Medical History: Medical History (Updated 01/09/23 @ 00:00 by Rosalia Pierre) GDM, class A2 IUP (intrauterine ), incidental Morbid obesity with BMI of 45.0-49.9, adult (normal spontaneous vaginal delivery) PIH ( induced hypertension) <SHEBA Sanchez Last Filed: 01/08/23 03:04> Family History Family History: Family History Mother Hypertension Father Diabetes mellitus Liver abscess and sequelae of chronic liver disease <SHEBA Sanchez Last Filed: 01/08/23 03:04> Social History Social History: Social History Years smoked: 17 Smoking status: Current every day smoker Substance use: never Gender identity (if verbalized by the patient): Female Sexual Orientation (if Verbalized by the Patient): Straight or Heterosexual Spiritual care concerns: No <SHEBA Sanchez Last Filed: 01/08/23 03:04> Exam Narrative: GENERAL: Well-appearing, well-nourished, and in no acute distress. HEAD: Normocephalic, atraumatic. EYES: PERRLA and EOMI. ENT: Nares clear, no rhinorrhea or epistaxis. Mucous membranes moist. Oropharynx without tonsillar hypertrophy exudate or other lesions. NECK: Supple. No adenopathy or masses. CHEST: No respiratory distress. Clear to auscultation. No wheezes rales or rhonchi HEART: Tachycardic to 116 on my exam. Regular rhythm. No murmur heard. Normal peripheral pulses. ABDOMEN: Soft, nontender, nondistended, normal active bowel sounds. MSK: No
[2023-01-07 22:58] LABS: NT Pro B Type Natriuretic Pept 205 pg/mL (19.9-100)
[2023-01-07] MEDS: LORazepam INJ (*CRX) 2 MG/ML VIAL 0.5 MG IV PUSH (23:00)
[2023-01-07] MEDS: SODIUM CHLORIDE 0.9% IV 1,000 ML 999 ML IV CONT (23:00)
[2023-01-08] VITALS: PULSE 91; RESP 17; O2SAT 97
[2023-01-08 00:15] VITALS: PULSE 93; RESP 12; O2SAT 99
[2023-01-08 00:30] VITALS: PULSE 79; RESP 14; O2SAT 93
[2023-01-08 01:30] LABS: Troponin I < 0.012 ng/mL (0.000-0.034)
[2023-01-08 01:55] VITALS: BP 160/100
== END 2023-01-08 01:56 | disposition home or self-care (01) ==
PROVIDERS: Emergency Medicine; Emergency Provider Physician Assistant
DX: F41.9 Anxiety disorder, unspecified (principal); E66.01 Morbid (severe) obesity due to excess calories; Z68.42 Body mass index [BMI] 45.0-49.9, adult; F17.200 Nicotine dependence, unspecified, uncomplicated; R00.0 Tachycardia, unspecified; I45.10 Unspecified right bundle-branch block
CPT/HCPCS: 36415; 71046; 71275; 80053; 83690; 83880; 84484; 85025; 85610; 85730; 93005; 96361; 96374; 99284; A9270; J2060; J7030; Q9967

== ENCOUNTER 2023-02-04 08:01 | Outpatient (CLI) | payer OTHER, SELFPAY ==
--- NOTE | ~2023-02-04 | XR_ITS ---
EXAMINATION: XR sacrum coccyx min 2V DATE: 02/04/2023 08:30 INDICATION: Tailbone pain when rising from seated position TECHNIQUE: 3 views of the sacrum and coccyx were obtained. COMPARISON: None. FINDINGS: Alignment is normal. No fracture. Mild osteoarthritis at the bilateral hip and sacroiliac joints. IMPRESSION: 1. Mild bilateral sacroiliac osteoarthritis. Reviewed, dictated and finalized at location L.
--- NOTE | ~2023-02-04 | XR_ITS ---
Lumbosacral Spine: AP and lateral views Clinical History: Pain Findings: The normal lordotic curve is maintained. The vertebral bodies and posterior elements are i ntact. The intervertebral disc spaces are preserved. There is mild facet arthropathy in the lumbar s pine. The sacroiliac joints are normally outlined. Impression: Mild facet joint degenerative changes. Reviewed, dictated and finalized at location . Impression: Mild facet joint degenerative changes.
== END 2023-02-04 08:02 | disposition home or self-care (01) ==
LOC: ANHIMG 08:07
PROVIDERS: PCP Emergency Medicine; Visit Provider Emergency Medicine
DX: M53.3 Sacrococcygeal disorders, not elsewhere classified (principal)
CPT/HCPCS: 72100; 72220

== ENCOUNTER 2023-04-30 09:01 | Outpatient (CLI) | payer OTHER, SELFPAY ==
--- NOTE | ~2023-04-30 | MM_ITS ---
EXAMINATION: MM screening cole BI w jo ann HISTORY: Screening mammogram TECHNIQUE: Craniocaudal and mediolateral oblique 3-D tomosynthesis images were obtained and synthetic 2-D images were generated. Bilateral rotated lateral CC views. CAD analysis was submitted and interp reted. COMPARISON: No prior mammogram is available for comparison at this institution. BREAST PARENCHYMAL COMPOSITION: FINDINGS: There is no evidence of suspicious mass, calcification, or architectural distortion to sugg est malignancy in either breast. There has been no suspicious interval change. IMPRESSION: 1. No mammographic evidence of malignancy. 2. Recommend routine screening mammography in one year. BI-RADS Category 1: Negative Reviewed, dictated and finalized at location A.
== END 2023-04-30 09:02 | disposition home or self-care (01) ==
LOC: ANHIMG 09:04
PROVIDERS: PCP Emergency Medicine; Visit Provider Emergency Medicine
DX: Z12.31 Encounter for screening mammogram for malignant neoplasm of breast (principal)
CPT/HCPCS: 77063; 77067

== ENCOUNTER 2023-08-13 19:32 | Emergency (ER) | payer OTHER, SELFPAY ==
[2023-08-13 19:42] VITALS: BP 154/109; PULSE 117; RESP 14; TEMP 36.2; O2SAT 98
--- NOTE | 2023-08-13 20:28 | ED.GENADULT ---
HPI - General Adult General Chief complaint: Extremity Injury, Lower Stated complaint: left foot infection Time Seen by Provider: 08/13/23 19:53 Source: patient Mode of arrival: ambulatory Limitations: no limitations History of Present Illness HPI narrative: This is a 38-year-old female who presents to the ED with chief complaint of left foot lesion onset 1 year ago and possibly infected today. Reports that she thought was a wart and has been doing [id number] wart treatments. She was able to pull a wart like lesion out of the foot today. She thought she saw some purulence and some surrounding redness. She did do a freezing treatment. States she feels otherwise fine. denies fevers, chills, nausea, vomiting or any spreading redness. Related Data Home Medications Medication Instructions Recorded Confirmed medroxyprogesterone 150 mg/mL See Rx Instructions .Route .COMPLEX 02/11/21 02/11/21 intramuscular suspension Allergies Allergy/AdvReac Type Severity Reaction Status Date / Time No Known Allergies Allergy Verified 02/11/21 18:45 Review of Systems Review of Systems: All systems as dictated in [facility] Past Medical History Medical History (Updated 08/14/23 @ 00:01 by Rosalia Pierre) GDM, class A2 IUP (intrauterine ), incidental Morbid obesity with BMI of 45.0-49.9, adult (normal spontaneous vaginal delivery) PIH ( induced hypertension) Family History Family History Mother Hypertension Father Diabetes mellitus Liver abscess and sequelae of chronic liver disease Social History Social History Years smoked: 17 Smoking status: Current every day smoker Substance use: never Gender identity (if verbalized by the patient): Female Sexual Orientation (if Verbalized by the Patient): Straight or Heterosexual Spiritual care concerns: No Exam Narrative: GENERAL: Well-appearing, well-nourished, and in no acute distress. HEAD: Normocephalic, atraumatic. EYES: PERRLA and EOMI. ENT: Nares clear, no rhinorrhea or epistaxis. Mucous membranes moist. Oropharynx without tonsillar hypertrophy exudate or other lesions. NECK: Supple. No adenopathy or masses. CHEST: No respiratory distress. Clear to auscultation. No wheezes rales or rhonchi HEART: Regular rate and rhythm. No murmur heard. Normal peripheral pulses. ABDOMEN: Soft, nontender, nondistended, normal active bowel sounds. MSK: Normal range of motion. No edema. SKIN: 0.5 cm lesion/defect to the skin of the left medial foot arch. There is of very small area of surrounding erythema. Mildly tender. No streaking up the leg or foot swelling. NEURO: Alert and oriented x3. No focal deficits. PSYCH: Normal mood and affect. Course Vital Signs Vital signs: Vital Signs Temperature 97.2 F L 08/13/23 19:42 Pulse Rate 117 H 08/13/23 19:42 Respiratory Rate 14 08/13/23 19:42 Blood Pressure 154/109 H 08/13/23 19:42 Pulse Oximetry 98 08/13/23 19:42 Temperature 98 F 08/13/23 21:01 Pulse Rate 100 08/13/23 21:01 Respiratory Rate 16 08/13/23 21:01 Blood Pressure 157/106 H 08/13/23 21:01 Pulse Oximetry 98 08/13/23 21:01 Medical Decision Making [facility] Narrative Medical decision making narrative: This is a 38 year old female who presents to the ED with chief complaint of a defect/lesion to the left foot for the past month. She has concern is it may be infected. There is an area of erythema surrounding a 0.5 cm all the foot. She was able to show me a video of her pulling out a worth that she had been doing work treatments for the past month. Overall symptoms are consistent with a plantar wart. However she may have had some superimposed bacterial infection as there is redness surrounding the area. No swelling or streaking up the leg. No systemic symptoms. She will do fine on ora
[2023-08-13 21:01] VITALS: BP 157/106; PULSE 100; RESP 16; TEMP 36.6; O2SAT 98
== END 2023-08-13 21:03 | disposition home or self-care (01) ==
LOC: ANHED 20:40
PROVIDERS: Emergency Provider Physician Assistant; PCP Emergency Medicine
DX: L03.116 Cellulitis of left lower limb (principal); E66.01 Morbid (severe) obesity due to excess calories; Z68.41 Body mass index [BMI] 40.0-44.9, adult; F17.200 Nicotine dependence, unspecified, uncomplicated
CPT/HCPCS: 99283

== ENCOUNTER 2024-03-11 18:40 | Emergency (ER) | payer OTHER, SELFPAY ==
[2024-03-11 18:50] VITALS: BP 140/85; PULSE 80; RESP 20; TEMP 36.6; O2SAT 98
--- NOTE | 2024-03-11 18:56 | ED.GENADULT ---
HPI - General Adult General Chief complaint: Skin/Abscess/Foreign Body Stated complaint: rash on upper thigh, right leg Time Seen by Provider: 03/11/24 18:56 Source: patient Mode of arrival: ambulatory Limitations: no limitations History of Present Illness HPI narrative: 38-year-old female patient presents to the [facility] with complaints of a rash to bilateral groin area for about the past month. Patient states the area started on the right groin in started about a quarter-size is gotten significantly bigger. Patient does have history of hydradenitis to the bilateral groin area and is constantly getting sores that are popping and draining. Patient states she tries to keep the area clean as much as she can but it is difficult. Patient states she also uses HIPAA cleanse the area daily. Related Data Home Medications Medication Instructions Recorded Confirmed atenolol 100 mg-chlorthalidone 25 1 tablet PO DAILY 03/11/24 03/11/24 mg tablet ergocalciferol (vitamin D2) 1,250 1,250 mcg PO WEEKLY 03/11/24 03/11/24 mcg (50,000 unit) capsule pantoprazole 40 mg tablet,delayed 40 mg PO DAILY 03/11/24 03/11/24 release paroxetine HCl 30 mg tablet 30 mg PO DAILY 03/11/24 03/11/24 Allergies Allergy/AdvReac Type Severity Reaction Status Date / Time No Known Allergies Allergy Verified 03/11/24 18:42 Review of Systems Review of Systems: CONSTITUTIONAL: Denies fever, chills, or sweats. EYES: Denies visual changes, redness, or discharge. ENT: Denies rhinorrhea, congestion, sore throat, or otalgia. CARDIOVASCULAR: Denies chest pain, palpitations, or edema. RESPIRATORY: Denies cough or dyspnea. GASTROINTESTINAL: Denies abdominal pain, nausea, vomiting, or diarrhea. GENITOURINARY: Denies dysuria or hematuria. SKIN: Positive rash with itching to bilateral groin area MUSCULOSKELETAL: Denies back pain, joint pain, or myalgia. NEUROLOGIC: Denies headache, numbness, or weakness. PSYCHIATRIC: Denies anxiety or depression. [facility] Past Medical History Medical History GDM, class A2 IUP (intrauterine ), incidental Morbid obesity with BMI of 45.0-49.9, adult (normal spontaneous vaginal delivery) PIH ( induced hypertension) Family History Family History Mother Hypertension Father Diabetes mellitus Liver abscess and sequelae of chronic liver disease Social History Social History Years smoked: 17 Smoking status: Current every day smoker Substance use: never Gender identity (if verbalized by the patient): Female Sexual Orientation (if Verbalized by the Patient): Straight or Heterosexual Spiritual care concerns: No Comments at the time of my signature I agree with nursing past medical history, surgical, social, and family history. There is no relevant family history pertinent to the presenting complaint. Exam Narrative: GENERAL: Well-appearing, well-nourished, and in no acute distress. HEAD: Normocephalic, atraumatic. EYES: PERRLA and EOMI. ENT: Nares clear, no rhinorrhea or epistaxis. Mucous membranes moist. NECK: Supple. No lymphadenopathy CHEST: Clear to auscultation. No respiratory distress. HEART: Regular rate and rhythm. No murmur heard. Normal peripheral pulses. ABDOMEN: Soft, nontender, nondistended, normal active bowel sounds. EXTREMITIES: Normal range of motion. No edema. SKIN: Warm, dry, patient has a rash to the bilateral groin area with what appears to be somewhat clearing in the middle and circular. Does appear to be a fungal rash. Patient has noticeable white drainage from her hydro night is sores to left groin that is draining but does not appear red, warm or infected. Patient also shows signs symptoms of a fungal rash to left groin area as well. NEURO: No focal deficits. Alert and oriented x3.
== END 2024-03-11 19:12 | disposition home or self-care (01) ==
PROVIDERS: Emergency Provider Nurse Practitioner Family; PCP Emergency Medicine
DX: B35.6 Tinea cruris (principal); F17.200 Nicotine dependence, unspecified, uncomplicated; E66.01 Morbid (severe) obesity due to excess calories; Z68.41 Body mass index [BMI] 40.0-44.9, adult
CPT/HCPCS: 99213; G0463

== ENCOUNTER 2024-03-12 20:56 | Emergency (ER) | payer OTHER, SELFPAY ==
[2024-03-12 21:00] VITALS: BP 136/95; PULSE 79; RESP 20; TEMP 36.9; O2SAT 99
== END 2024-03-12 23:00 | disposition left against medical advice (07) ==
LOC: ANHED 23:42
PROVIDERS: PCP Emergency Medicine
DX: R07.9 Chest pain, unspecified (principal)
CPT/HCPCS: 99199

== ENCOUNTER 2024-05-06 18:31 | Emergency (ER) | payer OTHER, SELFPAY ==
--- NOTE | 2024-05-06 18:35 | ED.SKABFB ---
HPI - Skin/Abscess/Foreign Bdy General Chief complaint: Skin/Abscess/Foreign Body Stated complaint: cyst under lt arm Time Seen by Provider: 05/06/24 18:44 Source: patient, RN notes reviewed and old records reviewed Mode of arrival: ambulatory Limitations: no limitations History of Present Illness HPI narrative: 38-year-old female presents to the [facility] with a cyst under left arm/axilla History of hidradenitis Related Data Home Medications Medication Instructions Recorded Confirmed atenolol 100 mg-chlorthalidone 25 1 tablet PO DAILY 03/11/24 05/06/24 mg tablet ergocalciferol (vitamin D2) 1,250 1,250 mcg PO WEEKLY 03/11/24 05/06/24 mcg (50,000 unit) capsule pantoprazole 40 mg tablet,delayed 40 mg PO DAILY 03/11/24 05/06/24 release paroxetine HCl 30 mg tablet 30 mg PO DAILY 03/11/24 05/06/24 Allergies Allergy/AdvReac Type Severity Reaction Status Date / Time No Known Allergies Allergy Verified 05/06/24 18:43 Review of Systems Review of Systems: All systems reviewed & are unremarkable except as noted in HPI and below Constitutional: Constitutional: Reports no additional constitutional complaints Eyes: Eyes: Reports no additional eye complaints ENT: Reports system reviewed and no additional complaints, except as documented Cardiovascular: Cardiovascular: Reports no additional cardiovascular complaints, Denies chest pain and Denies dyspnea Respiratory: Respiratory: Reports no additional respiratory complaints, Denies chest congestion, Denies cough and Denies dyspnea Gastrointestinal: Gastrointestinal: Reports no additional gastrointestinal complaints, Denies abdominal pain, Denies nausea and Denies vomiting Musculoskeletal: Musculoskeletal: Reports no additional musculoskeletal complaints Integumentary/Breasts: Skin/Breast: Reports as per HPI Neurologic: Reports system reviewed and no additional complaints, except as documented Psychiatric: Psychiatric: Reports no additional psychiatric complaints Allergic/Immunologic: Allergic/Immunologic: Reports no additional allergic/immunologic complaints [facility], [facility] Past Medical History Medical History GDM, class A2 IUP (intrauterine ), incidental Morbid obesity with BMI of 45.0-49.9, adult (normal spontaneous vaginal delivery) PIH ( induced hypertension) Family History Family History Mother Hypertension Father Diabetes mellitus Liver abscess and sequelae of chronic liver disease Social History Social History Years smoked: 17 Smoking status: Current every day smoker Substance use: never Gender identity (if verbalized by the patient): Female Sexual Orientation (if Verbalized by the Patient): Straight or Heterosexual Spiritual care concerns: No Comments At the time of my signature, I reviewed and agree with the nursing past medical, surgical, social, and family history. There is no relevant family history pertinent to the patient complaint. Exam Const: General: cooperative, healthy appearing, comfortable, no acute distress, well developed, alert and well nourished Nutritional Appearance: well nourished and obese Orientation/consciousness: patient oriented x3 Limitations: no limitations HENMT: Head: normal to inspection Ears: hearing grossly normal bilaterally and external ears normal Face/Nose/Sinus: Normal external nose present, Normal nares present, Normal nasal mucous membranes and turbinates present, normal facial exam and face symmetric Face and sinus: normal facial exam and face symmetric Eyes: General: appearance normal, both eyes and all related structures Alignment and Position: alignment normal Periorbital: periorbital findings normal Neck: Neck: normal visual inspection, full ROM, no lymphadenopathy and no meningeal signs Chest: Chest
[2024-05-06 18:43] VITALS: BP 128/82; PULSE 83; RESP 16; TEMP 36.1; O2SAT 99
[2024-05-06 18:44] VITALS: BP 128/82; PULSE 83; RESP 16; TEMP 36.1; O2SAT 99
== END 2024-05-06 19:15 | disposition home or self-care (01) ==
PROVIDERS: Emergency Provider Nurse Practitioner; PCP Emergency Medicine
DX: L73.2 Hidradenitis suppurativa (principal); E66.01 Morbid (severe) obesity due to excess calories; Z68.41 Body mass index [BMI] 40.0-44.9, adult; F17.210 Nicotine dependence, cigarettes, uncomplicated
CPT/HCPCS: 10060; 99213; G0463

== ENCOUNTER 2024-07-19 10:18 | Outpatient (CLI) | payer OTHER, SELFPAY ==
--- NOTE | 2024-07-19 10:30 | ECG_ITS ---
Test Date: 2024-07-19 10:34:13 Measurements Intervals [place] Rate: 98 P: 54 KS: 171 QRS: 76 QRSD: 127 T: 16 QT: 370 QTc: 474 Interpretive Statements SINUS RHYTHM RIGHT BUNDLE BRANCH BLOCK [120+ ms QRS DURATION, UPRIGHT V1, 40+ ms S IN I/aVL/V4/V5/V6] No previous ECG available for comparison Electronically Signed On 07-19-2024 14:44:29 VP [employer] by Binu Bellamy M.D.
[2024-07-19 11:02] LABS: Basophils Absolute Auto 0.1 K/mm3 (0.0-0.1); Basophils Percent Auto 0.5 % (0.2-1.2); Eosinophils Absolute Auto 0.1 K/mm3 (0-0.3); Eosinophils Percent Auto 0.7 % (0-4.4); Hematocrit 45.4 % (37.0-47.0); Hemoglobin 15.6 g/dL (12.0-15.0); Immature Granulocyte Absolute 0.06 K/mm3 (0.00-0.031); Immature Granulocyte Percent A 0.5 % (0-0.5); Lymphocytes Absolute Auto 3.16 K/mm3 (0.9-3.2); Lymphocytes Percent Auto 24.6 % (18.3-44.2); Mean Corpuscular HGB Conc 34.4 g/dl (32-36); Mean Corpuscular Hemoglobin 31.6 pg (26-34); Mean Corpuscular Volume 92.1 fl (80-100); Mean Platelet Volume 11.4 fl (7.4-10.4); Monocytes Absolute Auto 0.6 K/mm3 (0.1-0.6); Monocytes Percent Auto 4.4 % (2.6-8.5); Neutrophils Absolute Auto 8.9 K/mm3 (1.3-6.7); Neutrophils Percent Auto 69.3 % (45.5-73.1); Platelet Count Result 263 k/mm3 (150-375); Red Blood Count 4.93 M/mm3 (4.2-5.4); Red Cell Distribution Width 12.4 % (11.5-14.5); White Blood Count 12.8 K/mm3 (4.5-10.0)
[2024-07-19 11:10] LABS: Anion Gap 8 mmol/L (4-12); Blood Urea Nitrogen 14 mg/dL (7-17); Calcium 9.2 mg/dL (8.4-10.2); Carbon Dioxide 25 mmol/L (22-30); Chloride 104 mmol/L (98-107); Estimated Glomerular Filt Rate > 60; Glucose 180 mg/dL (65-110); Potassium 3.3 mmol/L (3.4-5.0); Sodium 137 mmol/L (137-145)
== END 2024-07-19 10:19 | disposition home or self-care (01) ==
LOC: ANHSURGERY 10:22
PROVIDERS: PCP Emergency Medicine; Visit Provider Surgery
DX: L73.2 Hidradenitis suppurativa (principal); I10 Essential (primary) hypertension
CPT/HCPCS: 36415; 80048; 85025; 93005

== ENCOUNTER 2024-07-27 00:51 | Day surgery (SDC) | payer OTHER, SELFPAY ==
[2024-07-18 09:23] VITALS: BMI 44.4
--- NOTE | 2024-07-18 09:24 | PC.NURSE ---
Report to the Outpatient Waiting Room, entrance under the green pavilion located off [facility], at time _1100_ on date _[id number]_. Planned Procedure Time: _1pm_.? Time changes happen often and if your time is changed the preop area will call you the afternoon before. - You and your visitor will be asked to self-screen and do not enter if you have any COVID symptoms. Please call surgeon if you need to reschedule. - A mask is optional within the hospital at this time. Patients may have clear liquids (water, carbonated beverages, clear teas, apple juice) until 3 hours prior to surgery with a maximum of 20 ounces. - No food from midnight until time of surgery and no smoking. This includes no chewing gum, candy or mints. Take only the following medications with a SIP of water on the morning of surgery: __Paroxetine DO NOT STOP ANY OF YOUR OTHER PRESCRIPTION MEDICATIONS PRIOR TO SURGERY EXCEPT THE FOLLOWING Medications to discontinue per physician None Please no make-up, nail [place], hairspray, perfume, deodorant, or body powder the day of surgery.? No jewelry (including any body piercings) or valuables the day of surgery, leave them at home.? Please take a shower or bath the night before, or the morning of, surgery with an antibacterial soap.? Wear comfortable, loose fitting clothing.? - Jewelry must be removed prior to entering the operating room.? Rings and piercings that are not removed may be cut off. - The hospital will not accept responsibility for valuables.? - Please leave all valuables, including medications, at home the day of surgery. If you are going home after surgery, a licensed drivers' cash clerk must drive you home.? - NO public transportation without another adult if you receive anesthesia. - We recommend that an adult stay with you for 24 hours following discharge. - We also recommend that you do not drive, make important decision, drink alcoholic beverages, or take any drugs that were not prescribed by your health care provider for at least 24 hours after your discharge time. Follow any additional instructions given to you from your surgeon. Telephone instructions given to _Kathy_and asked if any additional questions and then verbalized understanding. Patient advised to call surgeon office or pre surgery nurse liaison [phone] if any additional questions.
--- NOTE | 2024-07-24 15:53 | P.SS_ITS ---
Same Day Admit/Disch: HPI History of Present Illness Chief complaint: hidradenitis Narrative: Kathy Estrada is a 39 year old female with history of smoking and morbid obesity was seen in the office with history of hidradenitis and several chronically draining areas the left axilla and bilateral groins. Exam in the office showed significant hidradenitis in the left axilla as well as both groins. She was started on clindamycin 5 days before surgery. She is taken to the operating room now for excision of left axillary and bilateral inguinal hidradenitis. [facility] Past Medical History Medical History Headache Anxiety GDM, class A2 PIH ( induced hypertension) (normal spontaneous vaginal delivery) IUP (intrauterine ), incidental Morbid obesity with BMI of 45.0-49.9, adult Surgical History Surgical History Hx laparoscopic cholecystectomy 2008 Family History Family History Mother Hypertension Depression Father Diabetes mellitus Liver abscess and sequelae of chronic liver disease Hypertension Sibling Depression Social History Social History Years smoked: 20 Smoking status: Current every day smoker Tobacco type: cigarettes Substance use: never Do You Feel Safe in your Home?: Yes Lack of Transportation: No Lack of Food: Sometimes True Current Housing: I Have Housing Concerned About Future Housing: No Difficulty Paying Gas/Electric Bills: Decline to Answer Difficulty Paying for Meds: No Currently Unemployed: No Education: High School Diploma/GED Difficulty w/ Childcare or Family Care: No Living arrangements: with family Gender identity (if verbalized by the patient): Female Sexual Orientation (if Verbalized by the Patient): Straight or Heterosexual Spiritual care concerns: No Same Day Admit/Disch: Med Pre-admit Medications Home Medications ?Medication ?Instructions ?Recorded ?Confirmed ?Type atenolol 100 mg-chlorthalidone 25 1 tablet PO DAILY 03/11/24 07/18/24 History mg tablet paroxetine HCl 30 mg tablet 30 mg PO DAILY 03/11/24 07/27/24 History pantoprazole 20 mg tablet,delayed 20 mg PO DAILY 07/18/24 07/18/24 History release ketorolac 10 mg tablet 10 mg PO Q6H 4 days #16 tabs 07/27/24 Rx oxycodone-acetaminophen 5 mg-325 1 - 2 tablet PO Q6H PRN pain #30 07/27/24 Rx mg tablet (Percocet) tabs Review of Systems Review of Systems All systems reviewed & are unremarkable except as noted in HPI and below (HPI) Exam Const: General: cooperative, comfortable, no acute distress, alert, awake and obese Orientation/consciousness: patient oriented x3 and No confusion HENMT: Head: normocephalic and atraumatic Mouth: Yes Normal oral and palatal mucosa present Eyes: Conjunctivae: conjunctivae normal Pupils: Equal, round and reactive pupils present EOM: EOMs intact bilaterally Neck: Neck: normal visual inspection, no lymphadenopathy and nontender Resp: Effort & Inspection: normal respiratory effort Auscultation: clear to auscultation bilaterally Cardio: Rate: regular rate Rhythm: regular rhythm Heart sounds: no gallops, no murmurs and no rubs GI: Inspection: non-distended GI Palp: Yes Soft to palpation, No Tenderness to palpation present (GI), No Hepatomegaly present and No Splenomegaly present Skin: Lesions: lesion noted (Left axillary and bilateral inguinal hidradenitis) Rashes: no rashes Other: Right groin has a 5cm x 2cm at the uppermost of pubic hair. Also has some scarring the groin crease more medially which measures 5cm x 3cm. Left groin has quite a bit of moisture and there is a 12cm long x 3cm wide area of scarred chronic hydradenitis. Left axilla 6cm x 3cm scarred areas. Neuro: General: no focal motor deficits and CN's II-XI intact bilaterally Cranial nerves: Yes Equal, round and reactive pupils present, Yes Bilaterally intact EOM present, Yes facial symmetry and Yes Midline tongue present Speech: normal speech Motor exam (neuro): 5/5 motor strength present throughout and Motor abnormalities not present Extrem: General: no clubbing, cyanosis or edema and edema Psych: Affect: normal affect Thought process: Normal thought process present Insight: Good insight present (Psych) DS: Summary Time Spent with Patient Time attestation: Total time spent providing and/or coordinating discharge services: DS: Admitting Diagnosis Discharge Date 07/27/2024 Admitting Diagnosis * Hidradenitis, extensive, with recurrent infections left axilla and bilateral inguinal areas-plan to excise hidradenitis left axilla and bilateral inguinal areas under general anesthesia as an outpatient. I explained the procedure, risks, benefits, alternatives to the patient. I explained that due to the areas that we are excising, it is not unusual to have wounds that take longer to heal. I explained the nature of hidradenitis and the chronically recurring aspect of the disease that necessitate surgical excision to resolve. All questions were answered, she understands and agrees to go ahead. * Smoker-increases risks of poor surgical healing and pneumonia * Morbid obesity * Essential hypertension DS: Discharge Diagnosis Discharge Diagnosis (1) Hidradenitis suppurativa of multiple sites: Code(s): L73.2 - Hidradenitis suppurativa Status: Chronic Assessment and Plan: Excision left axillary, bilateral groin extensive hidradenitis 07/27/[address] Springer (2) Morbid obesity with BMI of 45.0-49.9, adult: Code(s): E66.01 - Morbid (severe) obesity due to excess calories; Z68.42 - Body mass index [BMI] 45.0-49.9, adult Status: Chronic Assessment and Plan: BMI 45 (3) Current smoker: Code(s): F17.200 - Nicotine dependence, unspecified, uncomplicated Status: Chronic Assessment and Plan: Long-term smoker Discharge Plan Discharge Patient Disposition: Home, Self-Care Discharge Instructions: * Dry to leave dressings in place and dry until Wednesday. Replace if they become soiled. On Wednesday, remove dressings and shower, cleaning all incisions with soap and water. Cover all wounds again with bulky gauze michel ssings and tape or snug fitting underwear for the groin. Keep dressings over wounds at all times except when showering. * Ambulate about 5-10 minutes at home 3 times a day. This is in addition to usu al ambulation to move for meals, bathroom, standard activities of daily life. * No driving until seen by Dr. Springer in the office. * Try to keep left elbow fairly close to chest. Do not overly abduct the shoulder. * Try not to abduct either hip (pull knees away from one another) any more than necessary. No crouching or kneeling. Ok to bend at waist, hip, and knees. * No sexual intercourse until released to do so by Dr. Springer. * There will be blood-tinged or bloody drainage from each wound. This is expected. Keep wounds clean by washing daily with soap and water and keeping clean dressings over all wounds. * Call for persistent bleeding, severe wound pain, fever over 100.5, or other significant change in condition. * Take prescription pain medication only when necessary. Take the minimum amount needed to make your pain tolerable. Try to use Ketoralac or Tylenol for pain medication whenever possible. * See Dr. Springer in the office in 1 week. Call for appointment if you do not already have an appointment. Patient Language: Malian Stand Alone Forms: General Discharge Instructions Follow-up/Referrals: Arvin Springer MD [Physician] - 08/03/24 Discharge Medications: New ketorolac 10 mg tablet 10 mg PO Q6H 4 Days Qty: 16 0RF oxycodone-acetaminophen [Percocet] 5-325 mg tablet 1 - 2 tablet PO Q6H PRN (Reason: pain) Qty: 30 0RF Continued atenolol-chlorthalidone 100-25 mg tablet 1 tablet PO DAILY paroxetine HCl 30 mg tablet 30 mg PO DAILY pantoprazole 20 mg tablet,delayed release (DR/EC) 20 mg PO DAILY
[2024-07-27] VITALS (9 sets, daily range): BP systolic 117–161; BP diastolic 75–95; PULSE 87–100; RESP 10–18; TEMP 36.1–36.2; O2SAT 95–100; BMI 45.0
--- NOTE | 2024-07-27 11:20 | WPDHPUPDATE1 ---
History and Physical Update Update Date/Time: 07/27/24 11:20 History and Physical has been reviewed, including an updated exam of the patient. There are NO changes in the patient's condition. Risks, benefits, and alternatives have been discussed and questions answered. Patient agrees to proceed with procedure.
--- NOTE | 2024-07-27 11:37 | WPDHPUPDATE1 ---
History and Physical Update Update Date/Time: 07/27/24 11:37 History and Physical has been reviewed, including an updated exam of the patient. There are NO changes in the patient's condition. Risks, benefits, and alternatives have been discussed and questions answered. Patient agrees to proceed with procedure.
[2024-07-27] MEDS: LACTATED RINGERS 1,000 ML 30 ML IV CONT ×2 (12:00→15:35)
--- NOTE | 2024-07-27 13:03 | P.PNAN_ITS ---
Anes - Initial Pre Proc Eval Procedure: Operation Date: 07/27/24 13:00 Proposed Procedures p Excision Hidradenitis of Left Axilla and Bilateral Groins - Arvin Springer MD Date/Time: 07/27/24 13:03 Surgeon: Arvin Springer MD Pre Op Diagnosis: hidradenitis Patient Data Age: 39 Gender: F Height: 1.73 m Weight: 134.3 kg Last Vital Signs Temp 36.1 C L 07/27/24 11:40 Pulse 88 07/27/24 11:40 BP 117/83 07/27/24 11:40 Pulse Ox 100 07/27/24 11:40 O2 Del Method Room Air 07/27/24 11:40 Allergies Allergy/AdvReac Type Severity Reaction Status Date / Time No Known Allergies Allergy Verified 07/27/24 12:05 Home Medications ?Medication ?Instructions ?Recorded ?Confirmed ?Type atenolol 100 mg-chlorthalidone 25 1 tablet PO DAILY 03/11/24 07/18/24 History mg tablet paroxetine HCl 30 mg tablet 30 mg PO DAILY 03/11/24 07/27/24 History pantoprazole 20 mg tablet,delayed 20 mg PO DAILY 07/18/24 07/18/24 History release HCG: negative Patient hx anesthesia problems: none Family hx anesthesia problems: none Results Review: All pre-operative results and documents have been reviewed as part of the pre- operative evaluation. [facility] Past Medical History Medical History Headache Anxiety GDM, class A2 PIH ( induced hypertension) (normal spontaneous vaginal delivery) IUP (intrauterine ), incidental Morbid obesity with BMI of 45.0-49.9, adult Surgical History Surgical History Hx laparoscopic cholecystectomy 2008 Family History Family History Mother Hypertension Depression Father Diabetes mellitus Liver abscess and sequelae of chronic liver disease Hypertension Sibling Depression Social History Social History Years smoked: 20 Smoking status: Current every day smoker Tobacco type: cigarettes Substance use: never Do You Feel Safe in your Home?: Yes Lack of Transportation: No Lack of Food: Sometimes True Current Housing: I Have Housing Concerned About Future Housing: No Difficulty Paying Gas/Electric Bills: Decline to Answer Difficulty Paying for Meds: No Currently Unemployed: No Education: High School Diploma/GED Difficulty w/ Childcare or Family Care: No Living arrangements: with family Gender identity (if verbalized by the patient): Female Sexual Orientation (if Verbalized by the Patient): Straight or Heterosexual Spiritual care concerns: No Anes - Eval Final PreProcedure Day of Procedure 07/27/24 13:03 Patient weight: morbidly obese Heart: regular rate and rhythm Lungs: clear to auscultation Airway: Mallampati scale class II and special considerations poor dentition Neurological: alert and oriented Last oral intake: >/= 8 hours ASA classification: III Emergent: no Anesthetic plan: proceed Anesthesia type and monitoring: general LMA and standard monitoring Results Review: All pre-operative results and documents have been reviewed as part of the pre- operative evaluation. Informed Consent: The patient's anesthetic plan and its attendant risks and benefits were discussed with the patient/family/POA. Questions were solicited and answers provided to the satisfaction of the patient/family/POA.
[2024-07-27] MEDS: ceFAZolin 3 GM/D5W 100 ML 100 ML IVPB (13:25)
[2024-07-27] MEDS: BUPIVACAINE/EPINEPHRINE 0.5% 30 ML VIAL INFILTRATE (13:25)
--- NOTE | 2024-07-27 15:57 | P.OP_ITS ---
Procedure Note - Detailed Date of Procedure 07/27/24 Pre-op Diagnosis Extensive hidradenitis left axilla, bilateral groins Post-op Diagnosis Same Procedure Performed Excision 8 cm hidradenitis left axilla with complex 13 cm repair; excision 17 cm hidradenitis left groin with 30 cm complex repair, excision 17 cm hidradenitis right groin with 23 cm complex repair Surgeon Arvin Springer MD Science Education Professor Alexandrea Cardona [facility] Anesthesia General and Local Indications Patient has longstanding hidradenitis in the left axilla and bilateral groins. It has been there for years. All 3 areas have had chronic recurrent infections with purulent drainage and healing. Multiple areas of scarring are evident. She is taken to surgery now for excision of extensive hidradenitis in these 3 locations Findings Extensive hidradenitis as discussed above Description of Procedure Patient was checked in the preoperative holding area. The extent of the hidradenitis in the left axilla as well as both groins was marked on the skin. She was then taken to surgery and induced into general anesthesia. She was in a supine position and then placed in lithotomy in Dre stirrups. Excess and redundant skin had to be taped to expose the areas of hidradenitis in the left axilla as well as both groins. After this, we were able to the prep and drape the left axilla as well as bilateral groins. We started in the left axilla which was the smallest of the 3 areas. An ellipse was drawn around the scarring in the left axilla. Local was infiltrated in the areas of the anticipated excision as well as in the subcutaneous. The ellipse was then excised. Cautery was used for hemostasis. The excision extended more into the axilla than it did towards the pectoralis. I had to undermine and create subcutaneous flaps in each direction to advance the wound edges for closure. The excision measured 8 x 2.5 cm. The closure was 13 cm. A deep layer of 3-0 Vicryl interrupted sutures was used to advance the 2 flaps together. Some of the underlying tissue was included in the suture to avoid a deep subcutaneous pocket. After this layer of 3-0 Vicryl, another layer of interrupted 3-0 Vicryl suture were placed. The skin was then approximated with interrupted subcuticular suture of 3-0 and 4-0 Vicryl suture. The skin was loosely approximated so that there would be some drainage. This was covered with a blue towel and then we went to the left groin. The left groin was probably the area of the most extensive hidradenitis. The areas of scarring were evident and a long ellipse was drawn on the skin with the lateral aspect of the ellipse being considerably less distant than the medial aspect due to the extensive medial scarring of the hidradenitis. Incision was made and the ellipse was excised primarily using cautery. Cautery and some suture were used to achieve hemostasis. I again had undermine subcutaneous flaps so that I could advance the wound edges for closure. The area of hidradenitis excised was 17 cm by 7 cm. The wound to be closed was 30 cm. In similar fashion multiple and extensive 3-0 Vicryl deep interrupted sutures were used to advance the flaps and partially obliterate any space. Two more layers of subcutaneous interrupted 3-0 Vicryl suture were then placed. Finally the skin was again loosely approximated using subcuticular interrupted 3-0 and 4-0 Vicryl suture. We then finally turned our attention to the right groin. The length of hidradenitis was similar but not nearly as wide as the left groin. I was able to draw an ellipse around this area of hidradenitis and again infiltrated local anesthetic as I had on the 2 previous excisions. Incision was made and then, primarily using cautery, I excised the skin and some of the subcutaneous containing scar tissue. This area of hidradenitis excised also was 17 cm in length. The wound closure was 23 cm in length. Similar to the other 2 areas, I did have to undermine subcutaneous from both the medial and lateral aspects of the wound. This allowed the flaps to be approximated with less tension. Multiple deep interrupted 3-0 Vicryl suture were placed to close the deepest layer of subcutaneous. A 2nd row of 3-0 Vicryl suture were placed in interrupted fashion. A 3rd row was also placed. The skin was then again loosely approximated with interrupted 3-0 and 4-0 Vicryl subcuticular suture. A ll wounds were thoroughly cleaned. The groin wounds were dressed with Xeroform gauze and bulky fluffs with tape and Promise panties. The axilla was dressed with bulky fluffs and Medipore tape. Patient was then awakened and taken to recovery in good condition. Sponge and needle counts were correct x2. Estimated Blood Loss -50 Drains No Packing No Pathology Yes (Left axillary hidradenitis, left groin hidradenitis, right groin hidradenitis) Complications None Condition Stable Disposition PACU [facility] Billing Surgery - Charge Forward: Surgery Billing (Excision left axillary hidradenitis with complex repair, excision left groin hidradenitis with complex repair excision right groin hidradenitis with complex repair.)
[2024-07-27] MEDS: fentaNYL CITRATE INJ (*CRX) 100 MCG/2 ML VIAL 25 MCG IV PUSH ×8 (16:01→17:24)
[2024-07-27] MEDS: oxyCODONE HCL (*CRX) 5 MG TAB IR PO (17:06)
== END 2024-07-27 17:55 | disposition home or self-care (01) ==
PROVIDERS: PCP Emergency Medicine; Visit Provider Surgery
PROC: (CPT 11451; principal; 2024-07-27 13:00)
DX: L73.2 Hidradenitis suppurativa (principal); L30.8 Other specified dermatitis; L73.8 Other specified follicular disorders; L90.5 Scar conditions and fibrosis of skin; G89.18 Other acute postprocedural pain; F41.9 Anxiety disorder, unspecified; F17.210 Nicotine dependence, cigarettes, uncomplicated; E66.01 Morbid (severe) obesity due to excess calories; Z68.42 Body mass index [BMI] 45.0-49.9, adult; Z98.890 Other specified postprocedural states; Z90.49 Acquired absence of other specified parts of digestive tract
CPT/HCPCS: 11451; 11463; 88304; A9270; J0690; J1100; J2250; J2405; J2704; J3010; J7120

== ENCOUNTER 2025-01-01 18:37 | Emergency (ER) | payer OTHER, SELFPAY ==
--- OUTSIDE RECORDS SUMMARY | 2025-01-01 18:39 | XMS_ITS | CONTINUITY OF CARE DOCUMENT ---
Author Name anne rodríguez Address Unknown Organization [facility] Address [address] [place] [address] [address] [place] [address] Phone [phone] Care Team Providers Care Supervisor Sewing Department Name Role Phone Evangelist Pretty MD Unavailable [phone] DION SHORT MD Unavailable [phone] DION SHORT MD Unavailable [phone] PROBLEMS Condition Status Date Provider Notes Screening active Evangelist Pretty MD Obesity active Evangelist Pretty MD FAMILY HISTORY OF HEART DISEASE active Evangelist Pretty MD dad had stent a nd mvp Exposure to SARS-associated coronavirus;had vaccine active Evangelist Pretty MD HTN essential active Evangelist Pretty MD GERD active Evangelist Pretty MD Anxiety depression active Evangelist Pretty MD Tobacco dependence, continuous active Evangelist Pretty MD Sleep apnea active Evangelist Pretty MD Sinus tachycardia active Evangelist rPetty MD ENCOUNTERS Date Type Provider Location Encounter Diag nosis - In-person encounter Office Visit Evangelist Pretty MD [place] [facility] ObesityFAMILY HISTORY OF HEART DISEASEExposure to SARS-associated coronavirus;had vaccineHTN essentialGERDAnxiety depressionTobacco dependence, continuousSleep apneaSinus tachycardia VITAL SIGNS Date Observation Value Provider Body Mass Index (Ratio) 46.52 kg/m2 Vira Pretty MD blood pressure, diastolic 119 mm[Hg] Mauri Bass blood pressure, systolic 161 mm[Hg] She agnieszka Bass respiratory rate E&M 20 /min Lucita Bass pulse rate 98 /min Lucita Bass oxygen saturation, oximetry 98 % Lucita Bass blood pressure, cuff size regular Mauri Bass height E&M 68 [in_i] Lucita Bass weight E&M 306 [lb_av] Lucita Bass HISTORY OF MEDICATION USE Medication Status Instructions Dates Provider Indications Com ments atenolol-chlortha lidone 100-25 mg tablet active TAKE 1 TABLET BY MOUTH EVERY DAY 4 Candelario Dunlap Tenoretic 100 100-25 mg tablet completed Take 1 tablet by mouth once a day 7 - 4 Candelario Dunlap pantoprazole 40 mg tablet,delayed release (DR/EC) active Evangelist Pretty MD lisinopril 40 mg tablet active Evangelist Pretty MD paroxetine HCl 10 mg tablet active Evangelist Pretty MD SOCIAL HISTORY Date Observation Value Provider social history E&M S moking History: P atient currently smokes every day. Evangelist Pretty MD social history reviewed E&M revi ewed - no changes required Evangelist Pretty MD smoking history, tot al pack/day 15 cig a day Lucita Bass cigarette use yes Lucita Bass smoking status Current every day smoker S floridalma Bass INSURANCE PROVIDERS Payer name Policy type / Coverage type [place] red libertarian [place] [employer] MEDICAID (2) Medicaid [id number] ADVANCE DIRECTIVES Name Date DISCUSSED - NO DECISION MADE TREATMENT PLAN Date Name Performer [id number],C,mild Evangelist kwong MD [id number],C,neg echo Vira Pretty MD [id number],S, Evangelist matos MD [id number],S, B P today: 161/119 Her updated medication list for this problem includes: Tenoretic 100 100-25 Mg Tablet (Atenolol-chlorthalidone) ..... Take 1 tablet by mouth once a day Lisinopril 40 Mg Tablet (Lisinopril) Evangelist Pretty MD [id number],SEvangelist MD [id number],SEvangelist MD [id number],SEvangelist MD [id number],SEvangelist MD [id number],SEvangelist MD :mild Evangelist Pretty MD :neg echo Evangelist Pretty MD Cardiology Evangelist Pretty MD Cardiology: B P today: 161/119 Her updated medication list for this problem includes: Tenoretic 100 100-25 Mg Tablet (Atenolol-chlorthalidone) ..... Take 1 tablet by mouth once a day Lisinopril 40 Mg Tablet (Lisinopril) Evangelist Pretty MD Cardiology Evangelist Pretty MD Cardiology Evangelist Pretty MD Cardiology Evangelist Pretty MD Cardiology Evangelist Pretty MD Cardiology Evangelist Pretty MD Date Name Holter Monitor 24 Hr Complete Echo Sleep Study Home HISTORY OF PROCEDURES Procedure Date Procedure Name Provider Procedure Notes S tatus EKG Evangelist Pretty MD complete d
--- OUTSIDE RECORDS SUMMARY | 2025-01-01 18:39 | XMS_ITS | Clinical Summary ---
Author Organization [facility] [employer] Address [address] [place] [address] Care Team Providers Care First Beater Name Role Phone Unavailable Primary Care Provider Unavailabl e Source Comments [facility]non-owned Affiliates and Associated Physician Practices is amultiple site organization consisting of ambulatory clinics and hospital sitesin [place], [place], [place]. This disclosure is being madepursuant to the Care Everywhere program and may not contain all information available regarding this patient. Last updated 18.[facility] Allergies No known active allergies Medications * Be aware that medications may not be up to date on this document. Alwaysverify current medications with the patient. Vit-Fe Fumarate-FA ( VITAMIN) 28-0.8 MG tablet Take 1 tablet by mouth once daily Active Active Problems Problem Noted Date Diagnosed Date AMA (advanced maternal age) multigravida 35+ 10/2019 Overview (01/03/2020): A+ Neg, Immune, Rpr-NR, HBSag-Neg, HIV-NR 24 hr urine 136 [id number] GDM (gestational diabetes mellitus) 01/03/2020 Overview (01/03/2020): HgA1C 5.7 24 hr urine 136 Social History Tobacco Use Types Packs/Day Years Used Date Smoking Tobacco: Never Assessed Comments No Sex and Gender Information Value Date Recorded Sex Assigned at Not on file Legal Sex Female 8:32 AM CDT Gender Identity Not on file Sexual Orientation Not on file Last Filed Vital Signs Vital Sign Reading Time Taken Comments Blood Pressure - - Pulse - - Temperature 35.8 C (96.5 F) 03/01/2020 8:36 AM CDT Respiratory Rate - - Oxygen Saturation - - Inhaled Oxygen Concentration - - Weight - - Height - - Body Mass Index - - Plan of Treatment Health Maintenance Due Date Last Done Comments LIPID TESTING 1984 MAMMOGRAM 1984 PAP SMEAR 1984 HIV SCREENING 1999 HEPATITIS C SCREENING 07/07/2002 DTAP/TDAP/TD VACCINES (1 - Tdap) 2003 HEPATITIS B VACCINE (1 of 3 - 19+ 3-dose series) 2003 COVID-19 VACCINE ( - 2023-2 5 season) 2024 DEPRESSION SCREENING 08/02/2024 INFLUENZA VACCINE (Season Ended) 2025 ZOSTER VACCINE (1 of 2) 2034 HIB VACCINE Aged Out No longer eligi ble based on patient's age to complete this topic HPV VACCINE Aged Out No longer eligi ble based on patient's age to complete this topic MENINGOCOCCAL (Group B) VACC INE SHARED DECISION-MAKING Aged Out No longer eligibl e based on patient's age to complete this topic MENINGOCOCCAL GROUPS A/C/Y/W VACCINE Aged Out No longer eligible b ased on patient's age to complete this topic PNEUMOCOCCAL VACCINE Aged Out No long er eligible based on patient's age to complete this topic Insurance [facility] PAY NO INSURANCE Member Subscriber Plan / Payer (Ef fective for All Dates) Name:Osvaldo Fam Member ID:Not on file Relation to Subscriber:Not on file Name:OSVALDO FAM Subscriber ID:Not on file (Home) Address: [address] [place] [id number] Payer ID:Not on file Group ID:Not on file Type:Self Pay Address: [place], [place]
--- OUTSIDE RECORDS SUMMARY | 2025-01-01 18:39 | XMS_ITS | Clinical Summary ---
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
--- OUTSIDE RECORDS SUMMARY | 2025-01-01 18:40 | XMS_ITS | CONTINUITY OF CARE DOCUMENT ---
Author Name anne rodríguez Address Unknown Organization [facility] Address [address] [place] [address] [address] [place] [address] Phone [phone] Care Team Providers Care Manager Of Organizational Development Name Role Phone Evangelist Pretty MD Unavailable DION SHORT MD Unavailable [phone] DION SHORT MD Unavailable [phone] PROBLEMS Condition Status Date Provider Notes Screening [...] Evangelist Pretty MD Sinus tachycardia active Evangelist Pretty MD ENCOUNTERS Date Type Provider Location Encounter Diag nosis - In-person encounter Office Visit Evangelist Pretty MD [place] [facility] ObesityFAMILY HISTORY OF HEART DISEASEExposure to [...] Payer name Policy type / Coverage type [place] red democrat ID [employer] MEDICAID (2) Medicaid [id number] ADVANCE DIRECTIVES Name Date DISCUSSED - NO DECISION MADE TREATMENT PLAN Date Name Performer [id number],C,mild Evangelist kwong MD [id number],C,neg echo Vira Pretty MD [id number],S, Evangelist matos MD [id number],S, B P today: 161/119 Her updated medication list for this problem includes: Tenoretic 100 100-25 Mg Tablet (Atenolol-chlorthalidone) ..... Take 1 tablet by mouth once a day Lisinopril 40 Mg Tablet (Lisinopril) Evangelist Pretty MD [id number],SEvangelist MD [id number],SEvangelist MD [id number],SEvangelist MD [id number],SEvangelist MD [id number],SEvangelist MD :mild Evangelist Pretty MD :neg echo [...]
--- NOTE | 2025-01-01 18:43 | ECG_ITS ---
Test Date: 2025-01-01 19:34:43 Measurements Intervals [place] Rate: 93 P: 59 [place]: 182 QRS: 67 QRSD: 138 T: 37 QT: 376 QTc: 468 Interpretive Statements SINUS RHYTHM RIGHT BUNDLE BRANCH BLOCK BASELINE ARTIFACT- I, II, III, AVR, AVL, AVF ABNORMAL ECG Compared to ECG 07/19/2024 10:34:13 No significant changes Electronically Signed On 01-02-2025 07:06:26 CDT by Juan Ponce D.O.
[2025-01-01 18:44] VITALS: BP 153/94; PULSE 96; RESP 20; TEMP 36.1; O2SAT 100
[2025-01-01] MEDS: ASPIRIN 81 MG CHEWABLE TABLET 324 MG PO (18:51)
--- NOTE | 2025-01-01 18:56 | ED.GENADULT ---
HPI - General Adult General Chief complaint: Chest Pain Stated complaint: Chest Pain / SOB History of Present Illness HPI narrative: Kathy Estrada is a 39-year-old female with past medical history of hypertension half pack-a-day smoker who [facility] with complaints chest heaviness pressure, shortness of breath, feeling like she is going to pass out. She states that she started to have some midsternal chest pain yesterday but it was dull and mild and today [place] it [place] worse she states that she has been sweating all day continues to be sweaty here states the chest pressure heaviness it is getting worse. Feels like it is difficult to take a deep breath. Related Data Home Medications ?Medication ?Instructions ?Recorded ?Confirmed ?Last Taken ?Type atenolol 100 mg-chlorthalidone 25 1 tablet PO DAILY 03/11/24 11/26/24 Unknown History mg tablet paroxetine HCl 30 mg tablet 30 mg PO DAILY 03/11/24 11/26/24 07/27/24 History Allergies Allergy/AdvReac Type Severity Reaction Status Date / Time No Known Allergies Allergy Verified 01/01/25 19:05 Review of Systems Review of Systems: All systems reviewed & are unremarkable except as noted in HPI and below PMFSH Past Medical History Medical History Headache Anxiety GDM, class A2 PIH ( induced hypertension) (normal spontaneous vaginal delivery) IUP (intrauterine ), incidental Morbid obesity with BMI of 45.0-49.9, adult Surgical History Surgical History Hx of hidradenitis suppurativa Excision 8 cm hidradenitis left axilla with complex 13 cm repair; excision 17 cm hidradenitis left groin with 30 cm complex repair, excision 17 cm hidradenitis right groin with 23 cm complex repair 07/27/[address] Springer Hx laparoscopic cholecystectomy 2008 Family History Family History Mother Hypertension Depression Father Diabetes mellitus Liver abscess and sequelae of chronic liver disease Hypertension Sibling Depression Social History Social History Years smoked: 20 Smoking status: Current every day smoker Tobacco type: cigarettes Substance use: never Do You Feel Safe in your Home?: Yes Lack of Transportation: No Lack of Food: Never True Current Housing: I Have Housing Concerned About Future Housing: No Difficulty Paying Gas/Electric Bills: No Difficulty Paying for Meds: No Currently Unemployed: YES Education: High School Diploma/GED Difficulty w/ Childcare or Family Care: No Living arrangements: with family Gender identity (if verbalized by the patient): Female Sexual Orientation (if Verbalized by the Patient): Straight or Heterosexual Spiritual care concerns: No Exam Narrative: GENERAL: well-nourished HEAD: Normocephalic, atraumatic. EYES: PERRLA and EOMI. ENT: Nares clear, no rhinorrhea or epistaxis. Mucous membranes moist. NECK: Supple. No adenopathy or masses. No carotid bruits or JVD CHEST: Clear to auscultation. No respiratory distress. No wheezes rales or rhonchi HEART: Regular rate and rhythm. No murmur heard. Normal peripheral pulses. EXTREMITIES: Normal range of motion. No edema. SKIN: Warm, dry, no rash. NEURO: No focal deficits. Alert and oriented x3. PSYCH: Normal mood and affect. Course Course Level of Care: [facility] Vital Signs Vital signs: Vital Signs Temperature 36.1 C L 01/01/25 18:44 Pulse Rate 96 01/01/25 18:44 Respiratory Rate 20 01/01/25 18:44 Blood Pressure 153/94 H 01/01/25 18:44 Pulse Oximetry 100 01/01/25 18:44 Oxygen Delivery Room Air 01/01/25 18:44 Temperature 36.1 C L 01/01/25 18:44 Pulse Rate 96 01/01/25 18:44 Respiratory Rate 20 01/01/25 18:44 Blood Pressure 153/94 H 01/01/25 18:44 Pulse Oximetry 100 01/01/25 18:44 Oxygen Delivery Room Air 01/01/25 18:44 Medical Decision Making [facility] Narrative Medical decision making narrative: 39-year-old female who presents with diaphoresis reporting of midsternal chest pressure that is getting worse and feels like it is difficult to take a deep breath. EKG performed and is sinus rhythm with right bundle branch block reviewed from previous EKG with out significant changes aspirin administered IV placed Discussed with pt that based on her symptoms it is recommended she go to the ER for more of a work up, she is agreeable to this plan. [place] emergency department notified and report given to Violet accepted transfer to emergency department patient is agreeable to go to the emergency department and to be transported by EMS EMS picked the patient up at 7:02 p.m. and is in route to the ER. Medical Records Medical records reviewed: Yes I reviewed the external patient's medical records. Vital Signs Vital Signs: Vital Signs Temperature 36.1 C L 01/01/25 18:44 Pulse Rate 96 01/01/25 18:44 Respiratory Rate 20 01/01/25 18:44 Blood Pressure 153/94 H 01/01/25 18:44 Pulse Oximetry 100 01/01/25 18:44 Oxygen Delivery Room Air 01/01/25 18:44 Temperature 36.1 C L 01/01/25 18:44 Pulse Rate 96 01/01/25 18:44 Respiratory Rate 20 01/01/25 18:44 Blood Pressure 153/94 H 01/01/25 18:44 Pulse Oximetry 100 01/01/25 18:44 Oxygen Delivery Room Air 01/01/25 18:44 vitals reviewed by me ECG Data EKG #1: ECG completion date: 01/01/25 ECG completion time: 18:51 Prior ECG tracings: available for review Interpretation: sinus rhythm, right bundle branch block, rate 93, CT 182, QRS 138, QT/ Qtc 367/427, p 59, R 67, T 37 Discharge Plan Discharge Clinical Impression: Shortness of breath, Diaphoresis Chest pain Qualifiers: Chest pain type: other chest pain Qualified Code(s): R07.89 - Other chest pain Patient Disposition: Acute Care Hospital Condition: Stable Patient Language: Tanzanian Prescriptions: No Action atenolol-chlorthalidone 100-25 mg tablet 1 tablet PO DAILY paroxetine HCl 30 mg tablet 30 mg PO DAILY Follow-up/Referrals: Osito Gaytan MD [Primary Care Provider] - Time of Disposition: 19:02
== END 2025-01-01 19:01 | disposition short-term general hospital (02) ==
PROVIDERS: Emergency Provider Nurse Practitioner Family; PCP Emergency Medicine
DX: R06.02 Shortness of breath (principal); R61 Generalized hyperhidrosis; R07.89 Other chest pain; I45.10 Unspecified right bundle-branch block; F17.210 Nicotine dependence, cigarettes, uncomplicated; E66.01 Morbid (severe) obesity due to excess calories; Z68.41 Body mass index [BMI] 40.0-44.9, adult; F41.9 Anxiety disorder, unspecified
CPT/HCPCS: 93005; 99205; A9270; G0463

== ENCOUNTER 2025-01-01 19:22 | Emergency (ER) | payer OTHER, SELFPAY ==
[2025-01-01] VITALS (7 sets, daily range): BP systolic 110–130; BP diastolic 66–85; PULSE 75–101; RESP 18–19; TEMP 36.6; O2SAT 97–100
--- NOTE | ~2025-01-01 | CT_ITS ---
EXAMINATION: CTA chest abdomen pelvis DATE: 01/01/2025 21:37 INDICATION: CP radiating to back, r/o dissection . TECHNIQUE: Computed tomography angiography of the chest, abdomen, and pelvis was performed with 100 m L Omnipaque-350 intravenous contrast in the arterial phase. Automated exposure control and iterative reconstruction technique were employed. The dose-length product was 2203.37 mGy-cm. COMPARISON: [facility] 01/07/2023; CT abdomen 09/18/2012 FINDINGS: CHEST: Thoracic aorta: No significant dilation. No dissection. Lung parenchyma and airways: Lungs and airways are clear. Thoracic inlet, axillae and chest wall: No thyroid or soft tissue mass. No axillary lymphadenopathy. Mediastinum: No mass or lymphadenopathy. Heart and pericardium: Normal heart size. No pericardial effusion. Coronary artery calcifications: . Pleura: No effusion or mass. Thoracic bones: No acute osseous finding in the chest. ABDOMEN/PELVIS: Liver: Enlarged. Diffusely low-density parenchyma. Biliary/Gallbladder: Gallbladder is absent. No bile duct dilation. Pancreas: No mass or duct dilation. Spleen: Enlarged. Adrenals: Indeterminate density bilateral adrenal lesions, stable in size and morphology, likely repr esenting adenomas. Kidneys: No suspicious mass, obstructing stone, or hydronephrosis. GI tract: No small or large bowel dilation. Normal appendix. Mesentery/Peritoneum: No ascites, mass, or free air. Retroperitoneum: No mass.No significant abdominal aortic atherosclerosis. Patent branch vessel origin s. No dissection or aneurysm. Pelvis: The urinary bladder is nearly empty. Normal uterus and bilateral ovaries. 6.6 cm low-density presacral mass which displaces the adjacent rectum, measuring 25 HU, smoothly marginated. Soft Tissues: Soft tissues and body wall unremarkable. Abdominopelvic bones: No acute osseous finding in the abdomen/pelvis. IMPRESSION: No aortic dissection or aneurysm. Hepatosplenomegaly. Hepatic steatosis. 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 Recommend pelvic MRI for further character ization and to exclude other entities and referral for potential excision. Reviewed, dictated and finalized at location K. IMPRESSION: No aortic dissection or aneurysm. Hepatosplenomegaly. Hepatic steatosis. 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 Recommend pelvic MRI for further characterization and to exclude other entities and referral for po tential excision.
--- NOTE | ~2025-01-01 | XR_ITS ---
EXAMINATION: XR chest 1V portable Exam Date/Time: 01/01/2025 19:40 CDT HISTORY: CP/SOB Comparison: 01/07/2023. RESULT: Lines, tubes, and devices: None. Lungs and pleura: Clear. Cardiomediastinal silhouette: Stable. Other: No acute osseous or upper abdominal finding. IMPRESSION: No acute cardiopulmonary process. Reviewed, dictated and finalized at location K.
--- NOTE | 2025-01-01 19:27 | ED.CHESTPAIN ---
HPI - Chest Pain General Chief Complaint: Chest Pain Stated Complaint: CP X 2 DAYS, FROM [facility] Time Seen by Provider: 01/01/25 19:23 Source: patient and other ([facility] prearrival report) Mode of arrival: EMS Limitations: no limitations History of Present Illness HPI narrative: Patient presents with central chest pain radiating towards her back between her shoulder blades. She notes that it started was yesterday and had been intermittent but today has been constant. She feels a sense of dizziness and lightheadedness. She has been having intermittent shortness of breath. Her symptoms are associated nausea but no vomiting. She notes that she has frequently diaphoretic and has been today. Her symptoms became worse today [place] She states these symptoms have never happened before but she has previously seen a technical systems architect although she does not follow with regularly. No cough and no hemoptysis. Denies any fevers although earlier today she did feel hot but chilled at the same time. No history of DVT or PE. No recent travel. No recent surgery requiring anesthesia. Denies edema. Her last menstrual period was 1 week ago. It initially been reported that she had near-syncope. She describes the pain as a squeezing sensation, 7 out of 10 in severity. Not on hormones. Cardiac risk factors HTN: Yes HLD: 0 DM: 0 Obese: Yes Smoker: Yes Personal history GA/TIA/CVA: No Fam Hx GA in first degree relative <65yo: Yes (to grandparents as well as a father who had stents placed before the age of 65 ) Related Data Home Medications ?Medication ?Instructions ?Recorded ?Confirmed ?Last Taken ?Type atenolol 100 mg-chlorthalidone 25 1 tablet PO DAILY 03/11/24 11/26/24 Unknown History mg tablet paroxetine HCl 30 mg tablet 30 mg PO DAILY 03/11/24 11/26/24 07/27/24 History Allergies Allergy/AdvReac Type Severity Reaction Status Date / Time No Known Allergies Allergy Verified 01/01/25 19:05 [facility] Past Medical History Medical History Hypertension Headache Anxiety GDM, class A2 PIH ( induced hypertension) (normal spontaneous vaginal delivery) IUP (intrauterine ), incidental Morbid obesity with BMI of 45.0-49.9, adult Surgical History Surgical History Hx of hidradenitis suppurativa Excision 8 cm hidradenitis left axilla with complex 13 cm repair; excision 17 cm hidradenitis left groin with 30 cm complex repair, excision 17 cm hidradenitis right groin with 23 cm complex repair 07/27/[address] Springer Hx laparoscopic cholecystectomy 2009 Family History Family History Mother Hypertension Depression Father Diabetes mellitus Liver abscess and sequelae of chronic liver disease Hypertension H/O heart artery stent <65yo Sibling Depression Grandparent Acute myocardial infarction Grandparent Acute myocardial infarction Social History Social History (Updated 01/01/25 @ 23:46 by Gauri Rocha MD) Smoking packs per day: 0.5 Smoking cigarettes per day: 10.0 Years smoked: 20 Smoking pack-years: 10.00 Smoking status: Current every day smoker Tobacco type: cigarettes Alcohol intake: never Substance use: never Do You Feel Safe in your Home?: Yes Lack of Transportation: No Lack of Food: Never True Current Housing: I Have Housing Concerned About Future Housing: No Difficulty Paying Gas/Electric Bills: No Difficulty Paying for Meds: No Currently Unemployed: YES Education: High School Diploma/GED Difficulty w/ Childcare or Family Care: No Living arrangements: with family Gender identity (if verbalized by the patient): Female Sexual Orientation (if Verbalized by the Patient): Straight or Heterosexual Spiritual care concerns: No Exam Narrative: GENERAL: Well-appearing, well-nourished, and in no acute distress. Cheeks flushed HEAD: Normocephalic, atraumatic. EYES: Non injected, non icteric ENT: Nares clear, no rhinorrhea or epistaxis. Gross auditory acuity intact. NECK: Supple. No meningismus. CHEST: Speaking in full sentences. No respiratory distress. Lungs clear without appreciable wheezes or crackles although limited on auscultation due to body habitus. HEART: Regular rate and rhythm. . ABDOMEN: Obese but Soft, nondistended. EXTREMITIES: Normal range of motion. No lower extremity edema. SKIN: No rash. Mild diaphoresis. NEURO: No focal deficits. Alert and oriented. Answering questions. Following commands. Normal speech without aphasia or dysarthria. PSYCH: Normal mood and affect. Course Vital Signs Vital signs: Vital Signs Temperature 98 F 01/01/25 19:20 Pulse Rate 96 01/01/25 19:20 Respiratory Rate 19 01/01/25 19:20 Blood Pressure 110/66 01/01/25 19:20 Pulse Oximetry 98 01/01/25 19:20 Oxygen Delivery Room Air 01/01/25 19:20 Temperature 98 F 01/01/25 19:20 Pulse Rate 75 01/01/25 23:58 Respiratory Rate 18 01/01/25 23:58 Blood Pressure 130/82 01/01/25 23:58 Pulse Oximetry 98 01/01/25 23:58 Oxygen Delivery Room Air 01/01/25 19:31 MDM - Chest Pain MDM Narrative Medical decision making narrative: Patient presents with chest pain radiating to back between shoulder blades. In the emergency department they are afebrile with vital signs within normal limits. PERC Rule for Pulmonary Embolism - r/o PE if no criteria are present and pre-test probability is <15% Age >/= 50: 0 SaO2 on room air <95%: 0 Unilateral leg swellin Recent surgery or trauma (<4 weeks ago requiring general anesthesia): 0 Prior PE or DVT: 0 Hormone use (OCPs, HRT, estrogenic hormone use in M/F patients): 0 HR >100: 0 Total PERC Score: 0; will defer further work up. HEART SCORE History 2 highly suspicious 1 moderately suspicious 0 slightly suspicious History score [address] depression/elevation not due to LBBB, LVH, or digoxin [address] depression but LBBB, LVH, nonspecific repolarization changes 0 normal ECG score 0 Age 2 >/= 65 1 45-64 0 <45 Age score 0 Risk factors (HTN, hypercholesterolemia, DM, obesity with BMI >30, current smoker or cessation </=3mo), positive fam hx with parent or sibling with CVD before age 65, atherosclerotic disease (prior GA, PCI/CABG, CVA/TIA, or peripheral arterial disease) 2 >/= 3 risk factors or history of atherosclerotic dz 1 - 1-2 risk factors 0 no known risk factors Risk factor score 2 Initial Troponin 2 >3 times normal limit 1 1-3 times normal limit 0 less than or equal to normal limit Troponin score 0 Total HEART Score 2. Lipase mildly elevated but not enough to suspect pancreatitis. Will give some IV fluids. Leukocytosis. Patient has hypokalemia. Magnesium ordered and will order repletion. Hyperglycemia with an anion gap and no acidosis. Sodium corrects to normal (139-142) in the setting of hyperglycemia; pseudohyponatremia. AST and ALT elevations. Repeat troponin normal. Patient is reassessed approximately 22:45 and we discussed her workup. She is feeling much better. We discussed her low but otherwise not negligible risk and recommended outpatient follow-up. She denies drinking alcohol. Has known about the cyst . Stable for discharge. Differential Diagnosis Differential diagnosis: Likely stable angina, unstable angina pectoris, atypical chest pain, st elevation myocardial infarction, costochondritis, chest pain, biliary colic and other (dehydration; rhabdomyolysis; aortic dissection) Lab Data Attestation: I reviewed the patient's lab results. Lab results narrative: test negative. Glucosuria 01/01/25 19:40 01/01/25 19:40 Labs: Lab Results 01/01/25 01/01/25 01/01/25 Range/Units 19:40 21:17 21:19 WBC 13.8 H (4.5-10.0) K/mm3 RBC 4.64 (4.2-5.4) M/mm3 Hgb 14.3 (12.0-15.0) g/dL Hct 42.0 (37.0-47.0) % MCV 90.5 (80-100) fl MCH 30.8 (26-34) pg MCHC 34.0 (32-36) g/dl RDW 12.7 (11.5-14.5) % Plt Count 246 (150-375) k/mm3 MPV 10.9 H (7.4-10.4) fl Immature Gran % (Auto) 0.4 (0-0.5) % Neut % (Auto) 64.1 (45.5-73.1) % Lymph % (Auto) 27.5 (18.3-44.2) % [place] % (Auto) 6.2 (2.6-8.5) % Eos % (Auto) 1.4 (0-4.4) % Baso % (Auto) 0.4 (0.2-1.2) % Lymph # (Auto) 3.80 H (0.9-3.2) K/mm3 [place] # (Auto) 0.9 H (0.1-0.6) K/mm3 Eos # (Auto) 0.2 (0-0.3) K/mm3 Baso # (Auto) 0.1 (0.0-0.1) K/mm3 Abs Immat Gran (auto) 0.05 H (0.00-0.031) K/mm3 Absolute Neuts (auto) 8.9 H (1.3-6.7) K/mm3 Absolute Nucleated RBC 0.000 (0.0-0.012) K/mm3 Nucleated RBC % 0.0 (0.0-0.2) % PT 13.5 (11.1-14.7) Seconds INR 1.0 APTT 24.0 (22.3-36.8) Seconds Sodium 135 L (137-145) mmol/L Potassium 3.0 L (3.4-5.0) mmol/L Chloride 98 (98-107) mmol/L Carbon Dioxide 23 (22-30) mmol/L Anion Gap 14 H (4-12) mmol/L BUN 16 (7-17) mg/dL Creatinine 0.97 (0.7-1.0) mg/dL Estim Creat Clear Calc 98 ml/min Estimated GFR > 60 (59 - ) Glucose 374 H (65-110) mg/dL Calcium 9.2 (8.4-10.2) mg/dL Magnesium 1.7 (1.6-2.3) mg/dL Total Bilirubin 0.4 (0.2-1.3) mg/dL AST 48 H (14-36) U/L ALT 40 H (6-35) U/L Alkaline Phosphatase 67 (38-126) U/L Total Creatine Kinase 81 (30-135) U/L Troponin I < 0.012 (0.000-0.034) ng/mL Total Protein 8.0 (6.3-8.2) g/dL Albumin 4.2 (3.5-5.1) g/dL Lipase 323 H (23-300) U/L Urine Color Yellow (Yellow) Urine Appearance Clear (Clear) Urine pH 7.0 (5.0-9.0) Ur Specific [place] 1.034 (1.001-1.035) Urine Protein Negative (Negative) mg/dL Urine Glucose (UA) 3+ H (Negative) mg/dL Urine Ketones Negative (Negative) mg/dL Ur Blood (Man) Negative (Negative) Urine Nitrate Negative (Negative) Urine Bilirubin Negative (Negative) Urine Urobilinogen 1.0 (<2.0) mg/dL Leukocyte Esterase Rfl Negative (Negative) RENETTA/UL POC Urine HCG, Qual Negative (Negative) 01/01/25 Range/Units 22:41 WBC (4.5-10.0) K/mm3 RBC (4.2-5.4) M/mm3 Hgb (12.0-15.0) g/dL Hct (37.0-47.0) % MCV (80-100) fl MCH (26-34) pg MCHC (32-36) g/dl RDW (11.5-14.5) % Plt Count (150-375) k/mm3 MPV (7.4-10.4) fl Immature Gran % (Auto) (0-0.5) % Neut % (Auto) (45.5-73.1) % Lymph % (Auto) (18.3-44.2) % [place] % (Auto) (2.6-8.5) % Eos % (Auto) (0-4.4) % Baso % (Auto) (0.2-1.2) % Lymph # (Auto) (0.9-3.2) K/mm3 [place] # (Auto) (0.1-0.6) K/mm3 Eos # (Auto) (0-0.3) K/mm3 Baso # (Auto) (0.0-0.1) K/mm3 Abs Immat Gran (auto) (0.00-0.031) K/mm3 Absolute Neuts (auto) (1.3-6.7) K/mm3 Absolute Nucleated RBC (0.0-0.012) K/mm3 Nucleated RBC % (0.0-0.2) % PT (11.1-14.7) Seconds INR APTT (22.3-36.8) Seconds Sodium (137-145) mmol/L Potassium (3.4-5.0) mmol/L Chloride (98-107) mmol/L Carbon Dioxide (22-30) mmol/L Anion Gap (4-12) mmol/L BUN (7-17) mg/dL Creatinine (0.7-1.0) mg/dL Estim Creat Clear Calc ml/min Estimated GFR (59 - ) Glucose (65-110) mg/dL Calcium (8.4-10.2) mg/dL Magnesium (1.6-2.3) mg/dL Total Bilirubin (0.2-1.3) mg/dL AST (14-36) U/L ALT (6-35) U/L Alkaline Phosphatase (38-126) U/L Total Creatine Kinase (30-135) U/L Troponin I < 0.012 (0.000-0.034) ng/mL Total Protein (6.3-8.2) g/dL Albumin (3.5-5.1) g/dL Lipase (23-300) U/L Urine Color (Yellow) Urine Appearance (Clear) Urine pH (5.0-9.0) Ur Specific [place] (1.001-1.035) Urine Protein (Negative) mg/dL Urine Glucose (UA) (Negative) mg/dL Urine Ketones (Negative) mg/dL Ur Blood (Man) (Negative) Urine Nitrate (Negative) Urine Bilirubin (Negative) Urine Urobilinogen (<2.0) mg/dL Leukocyte Esterase Rfl (Negative) RENETTA/UL POC Urine HCG, Qual (Negative) Imaging Data Radiologist's impression: Impressions Chest X-Ray 01/01/25 20:05 IMPRESSION: No acute cardiopulmonary process. Chest/Abdomen/Pelvis CTA 01/01/25 21:43 IMPRESSION: No aortic dissection or aneurysm. Hepatosplenomegaly. Hepatic steatosis. 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 Recommend pelvic MRI for further characterization and to exclude other entities and referral for potential excision. ECG Data EKG #1: Attestation: I personally reviewed and interpreted this ECG as follows: ECG completion date: 01/01/25 ECG completion time: 19:34 Prior ECG tracings: available for review (EKG 07/19/2024 showed right bundle-branch block) Interpretation: Normal sinus rhythm at a rate of 91 beats per minute. AK interval 177. QRS 138. QT/QTC 390/439. Good R-wave progression across the precordial leads. No T-wave inversions. RBBB given QRS greater [id number]; RSR' M-shaped pattern in V1-V3; wide, slurred S wave in lateral leads (I, aVL, V5-6) EKG #2: Attestation: I personally reviewed and interpreted this ECG as follows: ECG completion date: 01/01/25 ECG completion time: 22:49 Interpretation: Normal sinus rhythm at a rate of 77 beats per minute. AK interval 183. QRS 96. QT/QTC 386/418. Good R-wave progression across the precordial leads. Artifact in V2 limits full interpretation. T-wave inversion isolated to lead 3 but otherwise upright in normal in contiguous inferior leads 2 and AVF. No other T-wave inversions. Normal axis. Discharge Plan Discharge Clinical Impression: Chest pain, Right bundle branch block (RBBB), Leukocytosis, Acute hypokalemia, Hyperglycemia, Elevated AST (SGOT), Elevated ALT measurement, Pseudohyponatremia, Glucosuria, Hepatosplenomegaly, Hepatic steatosis, Presacral mass Patient Disposition: Home Condition: Stable Instructions: Antibiotic Form, Chest Pain (DC), Hypokalemia (ED), Non-Alcoholic Fatty Liver Disease (ED), Nondiabetic Hyperglycemia (ED), Transaminitis (ED) Additional Instructions: As we discussed, your workup did not reveal a cause of your chest pain in you are feeling better after IV fluids. Your otherwise low but not NO risk and so the recommendation is for outpatient workup/follow-up. This can be arranged through your primary care physician or the name of a technical systems architect is listed below. 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 Recommend pelvic MRI for further characterization and to exclude other entities and referral for potential excision. Patient Language: Bur[place]ian Prescriptions: No Action atenolol-chlorthalidone 100-25 mg tablet 1 tablet PO DAILY paroxetine HCl 30 mg tablet 30 mg PO DAILY Follow-up/Referrals: Stan Stack MD [Physician] - (Cardiology) Osito Gaytan MD [Primary Care Provider] - Stand Alone Forms: Work/School Release IP Time of Disposition: 23:47
--- NOTE | 2025-01-01 19:28 | ECG_ITS ---
RATE: 91 P: 46 CT: 177 QRS: 70 QRSd: 138 T: 21 QT: 390 QTc: 481 Interpretative Statement: SINUS RHYTHM RIGHT BUNDLE BRANCH BLOCK BASELINE ARTIFACT- I, II, AVR, AVL, AVF ABNORMAL ECG Compared to ECG 01/01/2025 18:51:55 No significant changes Electronically Signed On 01-02-2025 07:49:57 CDT by Juan Ponce D.O.
[2025-01-01 19:46] LABS: Basophils Absolute Auto 0.1 K/mm3 (0.0-0.1); Basophils Percent Auto 0.4 % (0.2-1.2); Eosinophils Absolute Auto 0.2 K/mm3 (0-0.3); Eosinophils Percent Auto 1.4 % (0-4.4); Hemoglobin 14.3 g/dL (12.0-15.0); Immature Granulocyte Absolute 0.05 K/mm3 (0.00-0.031); Immature Granulocyte Percent A 0.4 % (0-0.5); Lymphocytes Percent Auto 27.5 % (18.3-44.2); Mean Corpuscular Hemoglobin 30.8 pg (26-34); Mean Corpuscular Volume 90.5 fl (80-100); Mean Platelet Volume 10.9 fl (7.4-10.4); Monocytes Absolute Auto 0.9 K/mm3 (0.1-0.6); Monocytes Percent Auto 6.2 % (2.6-8.5); Neutrophils Absolute Auto 8.9 K/mm3 (1.3-6.7); Neutrophils Percent Auto 64.1 % (45.5-73.1); Platelet Count Result 246 k/mm3 (150-375); Red Blood Count 4.64 M/mm3 (4.2-5.4); Red Cell Distribution Width 12.7 % (11.5-14.5); White Blood Count 13.8 K/mm3 (4.5-10.0)
[2025-01-01 19:59] LABS: Alanine Aminotransferase 40 U/L (6-35); Albumin Level 4.2 g/dL (3.5-5.1); Alkaline Phosphatase 67 U/L (38-126); Anion Gap 14 mmol/L (4-12); Aspartate Amino Transferase 48 U/L (14-36); Bilirubin,Total 0.4 mg/dL (0.2-1.3); Blood Urea Nitrogen 16 mg/dL (7-17); Calcium 9.2 mg/dL (8.4-10.2); Carbon Dioxide 23 mmol/L (22-30); Chloride 98 mmol/L (98-107); Creatine Kinase 81 U/L (30-135); Estimated CRCL calculation 98 ml/min; Estimated Glomerular Filt Rate > 60; Glucose 374 mg/dL (65-110); Lipase 323 U/L (23-300); Sodium 135 mmol/L (137-145)
[2025-01-01 20:07] LABS: Prothrombin Time 13.5 Seconds (11.1-14.7)
[2025-01-01 20:11] LABS: Troponin I < 0.012 ng/mL (0.000-0.034)
[2025-01-01] MEDS: POTASSIUM BICARBONATE 25 MEQ TABEF 50 MEQ PO (20:13)
[2025-01-01] MEDS: SODIUM CHLORIDE 0.9% IV 1,000 ML 999 ML IV CONT (20:14)
--- NOTE | 2025-01-01 20:38 | PC.NURSE ---
RN asked pt if she is able to give us a urine sample. Pt verbally states she does not have to go yet. Pt currently has IV fluids going at this time. Pt states she would like to try after those are finished.
[2025-01-01 20:45] LABS: Magnesium 1.7 mg/dL (1.6-2.3)
[2025-01-01 21:20] LABS: BEDSIDEPREGUCG Negative (Negative)
[2025-01-01 21:24] LABS: Add Urine Microscopic? NO; Appearance Urine Clear (Clear); Bilirubin Urine Negative (Negative); Blood Urine Negative (Negative); Color Urine Yellow (Yellow); Glucose Urine UA 3+ mg/dL (Negative); Ketones Urine Negative (Negative); Leukocyte Esterase Ur Negative LEU/UL (Negative); Nitrate Urine Negative (Negative); Protein Urine Negative (Negative); Specific Grav Ur 1.034 (1.001-1.035)
--- NOTE | 2025-01-01 22:45 | ECG_ITS ---
Test Date: 2025-01-01 22:49:37 Measurements Intervals [place] Rate: 77 P: 43 NE: 183 QRS: 62 QRSD: 96 T: 24 QT: 386 QTc: 439 Interpretive Statements SINUS RHYTHM LOW QRS VOLTAGE IN PRECORDIAL LEADS BASELINE ARTIFACT- II, III, AVF, V2 BORDERLINE ECG Compared to ECG 01/01/2025 19:34:43 Right bundle-branch block no longer present Electronically Signed On 01-02-2025 06:14:12 CDT by Juan Ponce D.O.
[2025-01-01 23:34] LABS: Troponin I < 0.012 ng/mL (0.000-0.034)
== END 2025-01-01 23:59 | disposition home or self-care (01) ==
PROVIDERS: Emergency Provider Student in an Organized Health Care Education/Training Program; PCP Emergency Medicine
DX: R07.9 Chest pain, unspecified (principal); I45.10 Unspecified right bundle-branch block; D72.829 Elevated white blood cell count, unspecified; E87.6 Hypokalemia; R74.01 Elevation of levels of liver transaminase levels; R16.2 Hepatomegaly with splenomegaly, not elsewhere classified; K76.0 Fatty (change of) liver, not elsewhere classified; D48.7 Neoplasm of uncertain behavior of other specified sites; F17.210 Nicotine dependence, cigarettes, uncomplicated; I10 Essential (primary) hypertension; F41.9 Anxiety disorder, unspecified; E66.01 Morbid (severe) obesity due to excess calories; Z68.41 Body mass index [BMI] 40.0-44.9, adult
CPT/HCPCS: 36415; 71045; 71275; 74174; 80053; 81003; 81025; 82550; 83690; 83735; 84484; 85025; 85610; 85730; 93005; 96360; 99284; A9270; J7030; Q9967

== ENCOUNTER 2025-03-22 19:03 | Emergency (ER) | payer OTHER, SELFPAY ==
--- NOTE | 2025-03-22 19:05 | ED_ITS ---
HPI - General Adult General Chief complaint: Nausea/Vomiting/Diarrhea Stated complaint: sob/pain around breast and sides Time Seen by Provider: 03/22/25 19:21 Source: patient, RN notes reviewed and old records reviewed Mode of arrival: ambulatory Limitations: no limitations History of Present Illness HPI narrative: 39-year-old female presents to the [facility] with multiple complaints. First complaint she has had a dry cough for approximately 1 week. Has been using her 's inhaler which has helped. States that she has a substernal constant chest pressure sometimes radiating into the right chest, right breast as well as right neck. States that she always feels bloated. States that on Wednesday she did vomit 1 time. Has had chills yesterday. No measured temperature. Patient has a history hydradenitis suppurativa which she reports having surgically taken care of last July. States that she had another cyst in the right groin return, area is red, warm. States that her ?popped it? just prior to arrival and drained a whole bunch of pus. Patient has been using an antifungal cream to the area. Area is red, indurated Patient is a heavy smoker, obesity, history of hypertension Related Data Home Medications ?Medication ?Instructions ?Recorded ?Confirmed ?Last Taken ?Type atenolol 100 mg-chlorthalidone 25 1 tablet PO DAILY 11/26/24 Unknown History mg tablet paroxetine HCl 30 mg tablet 30 mg PO DAILY 03/11/2407/27/24 History Allergies Allergy/AdvReac Type Severity Reaction Status Date / Time No Known Allergies Allergy Verified 03/22/25 19:13 Review of Systems Review of Systems: All systems reviewed & are unremarkable except as noted in HPI and below Constitutional: Constitutional: Reports as per HPI, Reports fatigue and Reports fever(s) ENT: Reports system reviewed and no additional complaints, except as documented Cardiovascular: Cardiovascular: Reports as per HPI, Denies chest pain, Reports edema, Reports dyspnea and Reports other (chest pressure) Respiratory: Respiratory: Reports as per HPI, Denies chest congestion, Reports cough, Denies hemoptysis, Reports dyspnea and Denies wheezing Gastrointestinal: Gastrointestinal: Reports as per HPI, Reports bloating and Reports vomiting (x1) Musculoskeletal: Musculoskeletal: Reports no additional musculoskeletal complaints Integumentary/Breasts: Skin/Breast: Reports system reviewed and no additional complaints, except as docu [facility] Past Medical History Medical History Hypertension Headache Anxiety GDM, class A2 PIH ( induced hypertension) (normal spontaneous vaginal delivery) IUP (intrauterine ), incidental Morbid obesity with BMI of 45.0-49.9, adult Surgical History Surgical History Hx of hidradenitis suppurativa Excision 8 cm hidradenitis left axilla with complex 13 cm repair; excision 17 cm hidradenitis left groin with 30 cm complex repair, excision 17 cm hidradenitis right groin with 23 cm complex repair 07/27/[address] Springer Hx laparoscopic cholecystectomy 2008 Family History Family History Mother Hypertension Depression Father Diabetes mellitus Liver abscess and sequelae of chronic liver disease Hypertension H/O heart artery stent <65yo Sibling Depression Grandparent Acute myocardial infarction Grandparent Acute myocardial infarction Social History Social History Smoking packs per day: 0.5 Smoking cigarettes per day: 10.0 Years smoked: 20 Smoking pack-years: 10.00 Smoking status: Current every day smoker Tobacco type: cigarettes Alcohol intake: never Substance use: never Do You Feel Safe in your Home?: Yes Lack of Transportation: No Lack of Food: Never True Current Housing: I Have Housing Concerned About Future Housing: No Difficulty Paying Gas/Electric Bills: No Difficulty Paying for Meds: No Currently Unemployed: YES Education: High School Diploma/GED Difficulty w/ Childcare or Family Care: No Living arrangements: with family Gender identity (if verbalized by the patient): Female Sexual Orientation (if Verbalized by the Patient): Straight or Heterosexual Spiritual care concerns: No Comments At the time of my signature, I reviewed and agree with the nursing past medical, surgical, social, and family history. There is no relevant family history pertinent to the patient complaint. Exam Const: General: cooperative, no acute distress, well developed, alert, uncomfortable and well nourished Nutritional Appearance: well nourished and obese morbidly obese Orientation/consciousness: patient oriented x3 Limitations: no limitations HENMT: Head: normal to inspection Mouth: Yes lip normal, Yes tongue normal and Yes moist mucous membranes Teeth and gingiva: poor dentition Eyes: General: appearance normal, both eyes and all related structures Alignment and Position: alignment normal Neck: Neck: normal visual inspection, full ROM, no lymphadenopathy and no meningeal signs Chest: Chest palpation & inspection: normal inspection of the chest Other: Reports sternal chest pressure, unable to reproduce pain states that it is constant Resp: Effort & Inspection: normal respiratory effort and able to speak in complete sentences Auscultation: no crackles, no rales, no rhonchi, no wheezes and diminished lung sounds bilateral throughout Cardio: Rate: tachycardic Skin: General skin exam: normal color and no rashes or lesions noted Neuro: General: patient oriented x3, gait normal, moves all extremities and no meningeal signs Cognition (Neuro): normal cognition Speech: normal speech Gait exam (Neuro): Normal gait present Extrem: General: normal to inspection, full ROM, capillary refill normal and normal gait Psych: Appearance: grossly normal and well kempt Mental Status: mental status grossly normal Speech and movement: Normal speech and movement present and Clear speech present Affect: normal affect Attitude: cooperative Course Course Level of Care: Express Care Visit Vital Signs Vital signs: Vital Signs Temperature 97.6 F 03/22/25 19:12 Pulse Rate 113 H 03/22/25 19:12 Respiratory Rate 18 03/22/25 19:12 Blood Pressure 124/84 03/22/25 19:12 Pulse Oximetry 100 03/22/25 19:12 Oxygen Delivery Room Air 03/22/25 19:12 Temperature 97.6 F 03/22/25 19:12 Pulse Rate 113 H 03/22/25 19:12 Respiratory Rate 18 03/22/25 19:12 Blood Pressure 124/84 03/22/25 19:12 Pulse Oximetry 100 03/22/25 19:12 Oxygen Delivery Room Air 03/22/25 19:12 Reviewed Transfer Transfered to: [place] (per patient request) Transportation: Other (POC Declined EMS) Transfer rationale: Patient with multiple complaints, states that she has a constant chest pressure, substernal, grabbing the left side of her chest. States it radiates to her right neck, right breast area. Reports an episode of vomiting. Reports that she feels constantly bloated. Patient also with a large probable yeast infection to the left groin, indurated areas sending for higher level of care Accepting physician: Spoke with [facility] Medical Decision Making [facility] Narrative Medical decision making narrative: Patient sitting in exam room. Patient appears uncomfortable, multiple complaints including chest pressure that has been now constant, bloating, nausea, infection to the right groin. Transfer instructions reviewed with patient go directly to the ER. All questions have been answered, and the patient deny any further questions. Some parts of this dictation were generated by voice recognition software and may contain typographical and/or grammatical inaccuracies. Differential Diagnosis Differential Diagnosis: Bronchitis, pneumonia, PE, cardiac events Fungal infection groin, Hidradenitis Suppurativa, cellulitis Medical Records Medical records reviewed: Yes I reviewed the external patient's medical records. Vital Signs Vital Signs: Vital Signs Temperature 97.6 F 03/22/25 19:12 Pulse Rate 113 H 03/22/25 19:12 Respiratory Rate 18 03/22/25 19:12 Blood Pressure 124/84 03/22/25 19:12 Pulse Oximetry 100 03/22/25 19:12 Oxygen Delivery Room Air 03/22/25 19:12 Temperature 97.6 F 03/22/25 19:12 Pulse Rate 113 H 03/22/25 19:12 Respiratory Rate 18 03/22/25 19:12 Blood Pressure 124/84 03/22/25 19:12 Pulse Oximetry 100 03/22/25 19:12 Oxygen Delivery Room Air 03/22/25 19:12 Reviewed Lab Data Lab results reviewed: Yes I reviewed the patient's lab results. Labs: Reviewed ECG Data EKG #1: Attestation: I personally reviewed and interpreted this ECG as follows: ECG completion date: 03/22/25 ECG completion time: 19:34 Prior ECG tracings: available for review Interpretation: Sinus tachycardia, ventricle rate 107, MS interval 152, QRS duration 91. Abnormal rhythm EKG. No ST elevation or depression noted Critical Care Time Critical Care Time Critical Care Time: No Discharge Plan Discharge Clinical Impression: Hidradenitis suppurativa of multiple sites, Chest pressure, Shortness of breath, Bloating Patient Disposition: Acute Care Hospital Condition: Stable Instructions: Antibiotic Form Patient Language: Yakut Prescriptions: No Action atenolol-chlorthalidone 100-25 mg tablet 1 tablet PO DAILY paroxetine HCl 30 mg tablet 30 mg PO DAILY Follow-up/Referrals: Osito Gaytan MD [Primary Care Provider, Family Practice]
--- OUTSIDE RECORDS SUMMARY | 2025-03-22 19:05 | XMS_ITS | Clinical Summary ---
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
--- OUTSIDE RECORDS SUMMARY | 2025-03-22 19:08 | XMS_ITS | Clinical Summary ---
Author Organization [facility] Address [address] [place] [address] Care Team Providers Care Career Discovery Teacher Name Role Phone Unavailable Primary Care Provider Unavailabl e Source Comments [facility],non-owned Affiliates and Associated Physician Practices is amultiple site organization consisting of ambulatory clinics and hospital sitesin [place], [place], [place] and [place]. This disclosure is being madepursuant to the Care Everywhere program and may not contain all information available regarding this patient. Last updated 18.[facility] Allergies No known active allergies Medications * [...] Rpr-NR, HBSag-Neg, HIV-NR 24 hr urine 136 [id number] GDM (gestational diabetes mellitus) 01/03/2020 Overview (01/03/2020): [...] Done Comments LIPID TESTING 1984 MAMMOGRAM 1984 HIV SCREENING 1999 HEPATITIS C SCREENING 07/07/2002 DTAP/TDAP/TD VACCINES (1 - Tdap) 2003 HEPATITIS B VACCINE (1 of 3 - 19+ 3-dose series) 2003 PAP SMEAR 2005 HPV VACCINE (1 - 3-dose SCDM series) 2011 COVID-19 VACCINE ( - 2023-2 5 season) 2024 DEPRESSION SCREENING 08/02/2024 INFLUENZA VACCINE (#1) 2025 ZOSTER VACCINE (1 of 2) 2034 [...] patient's age to complete this topic Insurance [facility] SELF PAY NO INSURANCE Member Subscriber Plan / Payer (Ef fective for All Dates) Name:Osvaldo Fam Member ID:Not on file Relation to Subscriber:Not on file Name:OSVALDO FAM Subscriber ID:Not on file (Home) Address: [address] [place] [id number] Payer ID:Not on file Group ID:Not on file Type:Self Pay Address: [place], [place]
[2025-03-22 19:12] VITALS: BP 124/84; PULSE 113; RESP 18; TEMP 36.4; O2SAT 100
== END 2025-03-22 19:39 | disposition short-term general hospital (02) ==
PROVIDERS: Emergency Provider Nurse Practitioner; PCP Emergency Medicine
DX: L73.2 Hidradenitis suppurativa (principal); R07.89 Other chest pain; R06.02 Shortness of breath; R14.0 Abdominal distension (gaseous); F17.210 Nicotine dependence, cigarettes, uncomplicated; I10 Essential (primary) hypertension; E66.01 Morbid (severe) obesity due to excess calories; Z68.41 Body mass index [BMI] 40.0-44.9, adult; F41.9 Anxiety disorder, unspecified
CPT/HCPCS: 99212; G0463

== ENCOUNTER 2025-03-22 20:04 | Emergency (ER) | payer OTHER, SELFPAY ==
--- NOTE | ~2025-03-22 | XR_ITS ---
EXAMINATION: XR chest 2V 03/22/2025 20:33 INDICATION: Shortness of breath PROCEDURE: 2 view chest COMPARISON: 01/01/2025 FINDINGS: The lungs are clear. The cardiomediastinal silhouette is within normal limits. There are no pleural effusions. There is no pneumothorax suspected. IMPRESSION: 1: NO ACUTE CARDIOPULMONARY DISEASE. Reviewed, dictated and finalized at location O.
--- NOTE | 2025-03-22 20:07 | ECG_ITS ---
Test Date: 2025-03-22 19:34:42 Measurements Intervals [place] Rate: 107 P: 39 MO: 152 QRS: 58 QRSD: 91 T: 44 QT: 327 QTc: 437 Interpretive Statements SINUS TACHYCARDIA BASELINE ARTIFACT- II, III, AVR, AVL, AVF, V1-V2 ABNORMAL ECG Compared to ECG 01/01/2025 22:49:37 HEART RATE HAS INCREASED Electronically Signed On 03-23-2025 06:23:03 CDT by Juan Ponce D.O.
--- OUTSIDE RECORDS SUMMARY | 2025-03-22 20:07 | XMS_ITS | Clinical Summary ---
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
[2025-03-22 20:09] VITALS: BP 173/95; PULSE 124; RESP 22; TEMP 37; O2SAT 100
--- NOTE | 2025-03-22 20:18 | ECG_ITS ---
Test Date: 2025-03-22 20:18:11 Measurements Intervals [place] Rate: 110 P: 50 SD: 172 QRS: 60 QRSD: 80 T: 32 QT: 324 QTc: 439 Interpretive Statements SINUS TACHYCARDIA POSSIBLE LEFT ATRIAL ENLARGEMENT LOW QRS VOLTAGE IN PRECORDIAL LEADS BASELINE ARTIFACT- I, II, AVR, AVL, AVF, V2 ABNORMAL ECG Compared to ECG 03/22/2025 19:34:42 Low QRS voltage now present Electronically Signed On 03-23-2025 06:26:53 CDT by Juan Ponce D.O.
--- NOTE | 2025-03-22 20:26 | ED.SOB ---
HPI - SOB/Dyspnea General Chief Complaint: Shortness of Breath/Dyspnea Stated Complaint: cough, shortness of breath, chest pain Time Seen by Provider: 03/22/25 20:12 History of Present Illness HPI Narrative: This is a 39-year-old female with history of hidradenitis suppurativa, hypertension who presents to the ED for chest pain and shortness of breath. Patient states that for the past week, she has been having right-sided chest pain that radiates up to her right neck. Denies diaphoresis, numbness, tingling. She has also been having shortness of breath and feels like she cannot get a full breath. Pain is worse with deep inspirations. Denies known sick contacts but notes that her kids to just start school. Denies fevers, chills. Patient also notes that she has lesion to her right groin. She had surgery for hidradenitis suppurativa be in July of last year since the 1st lesion to pop since then. Related Data Home Medications ?Medication ?Instructions ?Recorded ?Confirmed ?Last Taken ?Type atenolol 100 mg-chlorthalidone 25 1 tablet PO DAILY 03/11/24 11/26/24 Unknown History mg tablet paroxetine HCl 30 mg tablet 30 mg PO DAILY 03/11/24 11/26/24 07/27/24 History Allergies Allergy/AdvReac Type Severity Reaction Status Date / Time No Known Allergies Allergy Verified 03/22/25 20:15 Review of Systems Review of Systems: Gen.: Denies fevers or chills Eyes: Denies eye pain or visual change ENT: Denies congestion Respiratory: As per HPI CV: As per HPI GI: Denies abdominal pain nausea, emesis or diarrhea denies burning, urgency, frequency or hematuria Musculoskeletal: Denies back pain or muscle pain Neuro: Denies numbness, tingling, weakness or focal weakness Skin: As per HPI Except as documented, all other systems reviewed and negative PMFSH Past Medical History Medical History Hypertension Headache Anxiety GDM, class A2 PIH ( induced hypertension) (normal spontaneous vaginal delivery) IUP (intrauterine ), incidental Morbid obesity with BMI of 45.0-49.9, adult Surgical History Surgical History Hx of hidradenitis suppurativa Excision 8 cm hidradenitis left axilla with complex 13 cm repair; excision 17 cm hidradenitis left groin with 30 cm complex repair, excision 17 cm hidradenitis right groin with 23 cm complex repair 07/27/[address] Springer Hx laparoscopic cholecystectomy 2009 Family History Family History Mother Hypertension Depression Father Diabetes mellitus Liver abscess and sequelae of chronic liver disease Hypertension H/O heart artery stent <65yo Sibling Depression Grandparent Acute myocardial infarction Grandparent Acute myocardial infarction Social History Social History Smoking packs per day: 0.5 Smoking cigarettes per day: 10.0 Years smoked: 20 Smoking pack-years: 10.00 Smoking status: Current every day smoker Tobacco type: cigarettes Alcohol intake: never Substance use: never Do You Feel Safe in your Home?: Yes Lack of Transportation: No Lack of Food: Never True Current Housing: I Have Housing Concerned About Future Housing: No Difficulty Paying Gas/Electric Bills: No Difficulty Paying for Meds: No Currently Unemployed: YES Education: High School Diploma/GED Difficulty w/ Childcare or Family Care: No Living arrangements: with family Gender identity (if verbalized by the patient): Female Sexual Orientation (if Verbalized by the Patient): Straight or Heterosexual Spiritual care concerns: No Exam Narrative: APPEARANCE: No acute distress, nontoxic, resting in bed EYES: EOMI HEENT: Normocephalic, atraumatic, OMM RESPIRATORY: No respiratory distress Clear to auscultation bilaterally with no rhonchi wheezing or rales. CARDIOVASCULAR: Tachycardic and rhythm without murmurs rubs or gallops. ABDOMINAL: Obese. Soft, nontender, nondistended, no rebound or guarding MUSCULOSKELETAl: Moves all extremities. No clubbing, cyanosis or edema. NEURO: Awake and alert. Following commands, speech normal, no focal deficits SKIN:: Small 5 x 5 mm abscess to the right groin with small amount of surrounding erythema. PSYCHIATRIC: Normal affect/mood, Course Vital Signs Vital signs: Vital Signs Temperature 98.6 F 03/22/25 20:09 Pulse Rate 124 H 03/22/25 20:09 Respiratory Rate 22 H 03/22/25 20:09 Blood Pressure 173/95 H 03/22/25 20:09 Pulse Oximetry 100 03/22/25 20:09 Oxygen Delivery Room Air 03/22/25 20:09 Temperature 98.6 F 03/22/25 20:09 Pulse Rate 91 03/22/25 21:48 Respiratory Rate 21 H 03/22/25 21:48 Blood Pressure 173/95 H 03/22/25 20:09 Pulse Oximetry 100 03/22/25 20:09 Oxygen Delivery Room Air 03/22/25 20:09 MDM - SOB/Dyspnea MDM Narrative Medical decision making narrative: 39-year-old female that presented to the ED for chest pain shortness of breath. On initial evaluation, patient was in acute distress, afebrile, tachycardic to 120s and hypertensive to 170/90 he is. Also mildly tachypneic. Breath sounds were distant but likely due to excess tissue. No wheezes were auscultated. Chest wall was nontender. She did have a noted small abscess consistent with her hidradenitis suppurativa to her right groin with minimal surrounding erythema. Culture of this was obtained. Mild leukocytosis at 12. Mild hyponatremia. Mildlly elevated lactic acid 2.3. Hyperglycemic to 341. CXR showed no acute process. D dimer negative. PAtient given 1L NS bolus, toradol, and lidoderm with mild improvement of her symtpoms and improvement of her heart rate to the mid 90s. Patient also given a duoneb treatment with improvement of her symptoms. Suspect she has early COPD. She will be given doxycycline for hidradenitis and albuterol for her shortness of breath. Patient has been trying to get in with multiple cardiologists, she was given numbers for multiple cardiologists here to establish care regarding her tachycardia. PAtient and mother were agreeable to this plan. Given strict return precautions. Differential Diagnosis Differential diagnosis: Likely acute exacerbation of chronic obstructive airways disease, community acquired pneumonia, pulmonary embolism and other (ACS, costochondritis) Medical Records Attestation: I reviewed the patient's medical records. Medical records narrative: On review of records, patient is very frequently with heart rate in the 90s to low 100s, suspect this is her baseline Lab Data Attestation: I reviewed the patient's lab results. 03/22/25 20:25 03/22/25 20:25 Labs: Lab Results 03/22/25 03/22/25 03/22/25 Range/Units 20:25 20:27 20:57 WBC 12.0 H (4.5-10.0) K/mm3 RBC 4.54 (4.2-5.4) M/mm3 Hgb 14.2 (12.0-15.0) g/dL Hct 42.9 (37.0-47.0) % MCV 94.5 (80-100) fl MCH 31.3 (26-34) pg MCHC 33.1 (32-36) g/dl RDW 13.5 (11.5-14.5) % Plt Count 220 (150-375) k/mm3 MPV 11.1 H (7.4-10.4) fl Immature Gran % (Auto) 0.6 H (0-0.5) % Neut % (Auto) 61.4 (45.5-73.1) % Lymph % (Auto) 29.8 (18.3-44.2) % [place] % (Auto) 6.6 (2.6-8.5) % Eos % (Auto) 1.2 (0-4.4) % Baso % (Auto) 0.4 (0.2-1.2) % Lymph # (Auto) 3.56 H (0.9-3.2) K/mm3 [place] # (Auto) 0.8 H (0.1-0.6) K/mm3 Eos # (Auto) 0.1 (0-0.3) K/mm3 Baso # (Auto) 0.1 (0.0-0.1) K/mm3 Abs Immat Gran (auto) 0.07 H (0.00-0.031) K/mm3 Absolute Neuts (auto) 7.3 H (1.3-6.7) K/mm3 Absolute Nucleated RBC 0.000 (0.0-0.012) K/mm3 Nucleated RBC % 0.0 (0.0-0.2) % D-Dimer 0.42 (<0.48) ug/mL Sodium 133 L (137-145) mmol/L Potassium 3.5 (3.4-5.0) mmol/L Chloride 99 (98-107) mmol/L Carbon Dioxide 23 (22-30) mmol/L Anion Gap 11 (4-12) mmol/L BUN 13 (7-17) mg/dL Creatinine 1.03 H (0.7-1.0) mg/dL Estim Creat Clear Calc 95 ml/min Estimated GFR 59 (59 - ) Glucose 341 H (65-110) mg/dL Lactic Acid 2.3 H (0.7-2.0) mmol/L Calcium 9.2 (8.4-10.2) mg/dL Total Bilirubin 0.4 (0.2-1.3) mg/dL AST 53 H (14-36) U/L ALT 36 H (6-35) U/L Alkaline Phosphatase 79 (38-126) U/L Troponin I < 0.012 (0.000-0.034) ng/mL C-Reactive Protein 2.3 H (<1.0) mg/dL Total Protein 7.8 (6.3-8.2) g/dL Albumin 4.2 (3.5-5.1) g/dL Imaging Data Radiologist's impression: Impressions Chest X-Ray 03/22/25 20:35 IMPRESSION: 1: NO ACUTE CARDIOPULMONARY DISEASE. ECG Data EKG #1: Attestation: I personally reviewed and interpreted this ECG as follows: ECG completion date: 03/22/25 ECG completion time: 19:34 Prior ECG tracings: available for review Interpretation: Sinus tachycardia rate 107, normal axis, normal intervals, no acute ST or T-wave changes. Comparison 01/01/2025: Aside from rate no significant change. Discharge Plan Discharge Clinical Impression: Hidradenitis suppurativa of multiple sites, Current smoker, Morbid obesity with BMI of 45.0-49.9, adult COPD (chronic obstructive pulmonary disease) Qualifiers: COPD type: unspecified COPD Qualified Code(s): J44.9 - Chronic obstructive pulmonary disease, unspecified Diabetes Qualifiers: Diabetes mellitus type: other specified (including JOANN) Diabetes mellitus [facility] insulin use: without regional intermodal truck driver use Diabetes mellitus complication status: with hyperglycemia Qualified Code(s): E13.65 - Other specified diabetes mellitus with hyperglycemia Patient Disposition: Home Condition: Stable Instructions: Antibiotic Form, Doxycycline (By mouth), How to Stop Smoking (ED), Weight Management (ED), COPD (Chronic Obstructive Pulmonary Disease) (DC), Hidradenitis Suppurativa (ED) Additional Instructions: Lab work and imaging showed no evidence of pneumonia or heart damage at this time. You were given prescriptions for doxycycline and albuterol, take as prescribed. Follow up with your PCP in the next week for reevaluation. Return to the ED for new or worsening symptoms. Continue to seek care regarding your obesity and weight loss surgery. You were also found to to have a high blood glucose which is consistent with diabetes, continue with her PCP for this. If you need assistance in stopping smoking or tobacco use or vaping use please call the following number: [phone] [phone] NOW. Patient Language: Wolof Prescriptions: New doxycycline hyclate 100 mg capsule 100 mg PO DAILY Qty: 30 0RF albuterol sulfate [Ventolin HFA] 90 mcg/actuation HFA aerosol inhaler 1 puff inhalation QID PRN (Reason: shortness of breath or wheezing) Qty: 8.5 0RF No Action atenolol-chlorthalidone 100-25 mg tablet 1 tablet PO DAILY paroxetine HCl 30 mg tablet 30 mg PO DAILY Follow-up/Referrals: Freddy Quintero MD [Physician, Cardiology] Micheal Roblero MD [Physician, Interventional Cardiology] Stan Stack MD [Physician, Interventional Cardiology] Osito Gaytan MD [Primary Care Provider, Family Practice]
[2025-03-22 20:35] LABS: Hematocrit 42.9 % (37.0-47.0); Hemoglobin 14.2 g/dL (12.0-15.0); Immature Granulocyte Percent A 0.6 % (0-0.5); Lymphocytes Absolute Auto 3.56 K/mm3 (0.9-3.2); Mean Corpuscular HGB Conc 33.1 g/dl (32-36); Mean Corpuscular Hemoglobin 31.3 pg (26-34); Mean Corpuscular Volume 94.5 fl (80-100); Nucleated Red Blood Cells Absolute Auto 0.000 K/mm3 (0.0-0.012); Nucleated Red Blood Cells Perc 0.0 % (0.0-0.2); Platelet Count Result 220 k/mm3 (150-375); Red Blood Count 4.54 M/mm3 (4.2-5.4); White Blood Count 12.0 K/mm3 (4.5-10.0)
[2025-03-22] MEDS: KETOROLAC 30 MG/ML VIAL (*BKC) IV PUSH (20:41)
[2025-03-22] MEDS: LIDOCAINE 5% PATCH 1 PATCH TRANSDERM (20:42)
[2025-03-22 20:46] LABS: Alanine Aminotransferase 36 U/L (6-35); Albumin Level 4.2 g/dL (3.5-5.1); Alkaline Phosphatase 79 U/L (38-126); Anion Gap 11 mmol/L (4-12); Aspartate Amino Transferase 53 U/L (14-36); Bilirubin,Total 0.4 mg/dL (0.2-1.3); Blood Urea Nitrogen 13 mg/dL (7-17); Calcium 9.2 mg/dL (8.4-10.2); Carbon Dioxide 23 mmol/L (22-30); Chloride 99 mmol/L (98-107); Estimated CRCL calculation 95 ml/min; Estimated Glomerular Filt Rate 59; Glucose 341 mg/dL (65-110); Potassium 3.5 mmol/L (3.4-5.0); Sodium 133 mmol/L (137-145); Total Protein 7.8 g/dL (6.3-8.2)
--- OUTSIDE RECORDS SUMMARY | 2025-03-22 20:46 | XMS_ITS | Clinical Summary ---
Author Organization [employer] Luna washburn - 2023 [address] [facility] [address] [place] [address] Phone Care Team Providers Care Custom Applicator Name Role Phone Unavailable Primary Care Provider Unavailabl e Social History Tobacco Use Types Packs/Day Years Used Date Smoking Tobacco: Never Assessed Comments Unknown Sex and Gender Information Value Date Recorded Sex Assigned at Not on file Legal Sex Female 12:19 PM [employer] Gender Identity Not on file Sexual Orientation [...] SCREENING 2024 INFLUENZA VACCINE (#1) 2025 Insurance [facility] MEDICAID [employer] MED[employer]
[2025-03-22] MEDS: SODIUM CHLORIDE 0.9% IV 1,000 ML 999 ML IV CONT (20:54)
[2025-03-22 21:09] LABS: CRP 2.3 mg/dL (<1.0)
[2025-03-22 21:13] LABS: Troponin I < 0.012 ng/mL (0.000-0.034)
[2025-03-22 21:48] VITALS: PULSE 91; RESP 21
[2025-03-22] MEDS: IPRATROPIUM 0.5 MG/ALBUTEROL SULFATE 2.5 MG AMPUL.NEB 3 ML INHALATION (21:48)
== END 2025-03-22 22:00 | disposition home or self-care (01) ==
PROVIDERS: Emergency Medicine; Emergency Provider Student in an Organized Health Care Education/Training Program; PCP Emergency Medicine
DX: J44.9 Chronic obstructive pulmonary disease, unspecified (principal); E13.65 Other specified diabetes mellitus with hyperglycemia; L73.2 Hidradenitis suppurativa; E66.01 Morbid (severe) obesity due to excess calories; Z68.42 Body mass index [BMI] 45.0-49.9, adult; F17.210 Nicotine dependence, cigarettes, uncomplicated; I10 Essential (primary) hypertension; F41.9 Anxiety disorder, unspecified; Z90.49 Acquired absence of other specified parts of digestive tract; Z79.899 Other long term (current) drug therapy; R94.31 Abnormal electrocardiogram [ECG] [EKG]; R00.0 Tachycardia, unspecified
CPT/HCPCS: 36415; 71046; 80053; 83605; 84484; 85025; 85380; 86140; 87040; 87070; 87075; 87205; 93005; 94640; 96361; 96374; 99284; A9270; J1885; J7030